=== PATIENT | female | born 1950 | race Caucasian/White ===

== ENCOUNTER → 2017-02-24 | Outpatient (CLI) | payer MEDICARE ==
[2017-02-24 11:06] LABS: Blood Urea Nitrogen 16 mg/dL (7-17); Non-African American GFR(MDRD) >60 (>60 ml/min/1.73 sqM)
--- NOTE | 2017-02-24 12:59 | CT ---
EXAMINATION TYPE: CT urogram wo/w con DATE OF EXAM: 02/24/2017 HISTORY: Intermittent hematuria. CT DLP: 2432mGycm Automated Exposure Control for Dose Reduction was Utilized. CONTRAST: CT scan of the abdomen and pelvis is performed without and with IV Contrast, patient injected with 10 0 mL of Omnipaque 300. 3-D reformats were obtained in separate workstation. COMPARISON: None. FINDINGS: LUNG BASES: A moderate hiatal hernia is appreciated. Minimal subsegmental bibasilar atelectasis is se en dependently. LIVER/GB: No significant abnormality is appreciated. Solitary punctate gallstone is noted. PANCREAS: No significant abnormality is seen. SPLEEN: No significant abnormality is seen. ADRENALS: No significant abnormality is seen. KIDNEYS/BLADDER: Three sub-4mm hypoattenuated right renal lesions are seen that are too small to accu rately characterize. Prominent, Kale is noted on the left. No evidence of nephrolithiasis or hydron ephrosis. Other than the too small to accurately characterize renal hypoattenuating lesions the kidne ys enhance and excrete symmetrically. Few renal sinus cysts are seen on the left in the inferior pole . The ureters are nearly completely opacified. On delayed imaging lateral to the left ureterovesicula r junction there is a filling defect noted dependently within the urinary bladder abutting the compressor repairer ior wall measuring 9.7 x 10.4 x 12.3 cm in transverse by anterior posterior by craniocaudal dimension . BOWEL: No significant abnormality is seen. UTERUS/ADNEXA: No gross abnormality seen. LYMPH NODES: No greater than 1cm abdominal or pelvic lymph nodes are appreciated. OSSEOUS STRUCTURES: No significant abnormality is seen. Mild to moderate degenerative changes are kimberly reciated of the thoracolumbar spine. Indeterminant area of sclerosis is seen along the anterior franco x of the L4 vertebral body. This does not subtle rounded region containing vertical trabecula as seen on series 15 image 26 and series 12 image 87, therefore this may relate to a vertebral body hemangio ma. OTHER: Small fat filled umbilical hernia seen. IMPRESSION: 1. Suspicious 10.4 cm filling defect in the along the posterior urinary bladder all wall lateral to t he left ureterovesicular junction. Direct visualization is recommended with consideration for tissue sampling. 2. Probable L4 vertebral body hemangioma, although slightly atypical characteristics are seen. 3. Right renal lesions that are too small to accurately characterize and left renal sinus cysts. No e vidence of nephrolithiasis or hydronephrosis. 4. Moderate hiatal hernia. 5. Solitary punctate gallstone. A [employer] message has been communicated to Mateo Stafford MD via the [employer] Result system on 02/24/2017 12:56 PM, Message ID [id number].
== END | disposition home or self-care (01) ==
LOC: RADFLMAIN 10:24
PROVIDERS: ATTEND Urology
DX: N28.89 Other specified disorders of kidney and ureter (principal); K80.80 Other cholelithiasis without obstruction; K44.9 Diaphragmatic hernia without obstruction or gangrene
CPT/HCPCS: 82565; 84520; 74178; 36415; 74400; Q9967

== ENCOUNTER → 2017-03-04 | Outpatient (CLI) | payer BC, MEDICARE ==
--- NOTE | 2017-03-04 10:59 | US ---
EXAMINATION TYPE: US duplex aorta DATE OF EXAM: 03/04/2017 COMPARISON: NONE CLINICAL HISTORY: Z13.9 SCREENING FOR DISORDER. Family HX of AAA; controlled HTN EXAM MEASUREMENTS: Abdominal Aorta: Proximal: 2.0cm Transverse Mid: 1.6cm A/P Distal: 1.3cm Transverse Bifurcation: 0.8cm A/P Right STEPHEN; 0.8cm A/P Left STEPHEN Patency of Aorta and Bilateral Common Iliac is demonstrated by color flow and PW Doppler waveform of aorta. IMPRESSION: 1. No abdominal aortic aneurysm.
== END | disposition home or self-care (01) ==
LOC: RADUSWWP 06:57
PROVIDERS: ATTEND Family Medicine
DX: Z13.9 Encounter for screening, unspecified (principal)
CPT/HCPCS: 93979

== ENCOUNTER → 2017-03-04 | Outpatient (CLI) | payer MEDICARE, BC ==
--- NOTE | 2017-03-08 12:08 | BD ---
EXAMINATION TYPE: MG DEXA axial skeleton. DATE OF EXAM: 03/04/2017 COMPARISON: 11.27.2014 CLINICAL HISTORY: Z13.820 SCREEN FOR OSTEOPOROSIS, M85.9 OSTEOPENIA Height: 60.5 Weight: 166 FRAX RISK QUESTIONS: Alcohol (3 or more units per day): NO Family History (Parent hip fracture): YES, WITH FX Glucocorticoids (More than 3mos): NO (Ex: prednisone, prednisolone, methylprednisolone, dexamethasone, and hydrocortisone). History of Fracture in Adulthood: YES Secondary Osteoporosis: NO 1. Type 1 Diabetes: NO 2. Hyperthyroidism: NO 3. Menopause before 45: NO 4. Malnutrition: NO 5. Chronic liver disease: NO Rheumatoid Arthritis: NO Current Tobacco Use: NO RISK FACTORS HISTORY OF: RT HEEL FRACTURE AT 51 YRS OLD Family History of Osteoporosis: YES HER GRANDMOTHER, WITH BROKEN HIP Active: YES Diet low in dairy products/other sources of calcium: NO Postmenopausal woman: AT 52 YRS OLD Hyperparathyroidism: NO Adrenal Insufficiency: NO MEDICATIONS: Thyroid Medications: YES GENERIC SYNTHROID 75 MCG DAILY How Lon YRS Additional Medications: BP MEDS, STATINS FOR CHOLESTEROL, OCCASIONAL REFLUX MEDS, CALCIUM AND VIT D A ND MAGNESIUM Additional History: HYPERTENSION, HIGH CHOLESTEROL, OSTEOARTHRITIS. EXAM MEASUREMENTS: Bone mineral densitometry was performed using the [employer] System. Bone mineral density as measured about the Lumbar spine is: ----- L1-L4(G/cm2): 1.058 T Score Values are as follows: ----- L1: -1.9 ----- L2: -1.4 ----- L3: -1.0 ----- L4: -0.1 ----- L1-L4: -1.0 Bone mineral density has: Increased 5.5% since study of: 11.27.2014 Bone mineral density about the R hip (g/cm2): 0.936 Bone mineral density about the L hip (g/cm2): 0.946 T Score values are as follows: -----R Neck: -0.6 -----L Neck: -0.8 -----R Total: -0.6 -----L Total: -0.5 Bone mineral density has: Decreased -2.7% since study of: 11.27.2014 FRAX%'S: THERE IS A 23.1% CHANCE OF A MAJOR OSTEOPOROTIC FX AND A 0.9% CHANCE OF HIP FX.....PROBA BILITY IN 10 YRS TIME IMPRESSION: Osteopenia (T Score between -2.5 and -1 as noted by T score values There is slightly increased risk of fracture and the patient may be considered for treatment. Re-Screen 2-5 years FOR HER LUMBAR SPINE SCAN. NOTE: T-SCORE=SD OF THE YOUNG ADULT MEAN.
--- NOTE | 2017-03-09 07:09 | MM ---
Reason for exam: screening (asymptomatic). Last mammogram was performed 2 years and 3 months ago. History: Patient is postmenopausal. Family history of breast cancer in cousin. Physical Findings: A clinical breast exam by your physician is recommended on an annual basis and results should be correlated with mammographic findings. MG 3D Screening Mammo W/Cad Bilateral CC and MLO view(s) were taken. Prior study comparison: November 27, 2014, bilateral MG screening mammo w CAD. October 31, 2012, bilateral digital screening mammo w/CAD. The breast tissue is heterogeneously dense. This may lower the sensitivity of mammography. No significant changes when compared with prior studies. ASSESSMENT: Benign, BI-RAD 2 RECOMMENDATION: Routine screening mammogram of both breasts in 1 year.
== END | disposition home or self-care (01) ==
LOC: RADMAMWWP 07:03
PROVIDERS: ATTEND Obstetrics & Gynecology
DX: Z12.31 Encounter for screening mammogram for malignant neoplasm of breast (principal); M85.80 Other specified disorders of bone density and structure, unspecified site; Z80.3 Family history of malignant neoplasm of breast; Z13.820 Encounter for screening for osteoporosis
CPT/HCPCS: 77080; 77063; G0202

== ENCOUNTER → 2018-03-13 | Outpatient (CLI) | payer MEDICARE ==
--- NOTE | 2018-03-15 09:51 | MM ---
Reason for exam: screening (asymptomatic). Last mammogram was performed 1 year ago. History: Patient is postmenopausal. Family history of breast cancer in cousin. Physical Findings: A clinical breast exam by your physician is recommended on an annual basis and results should be correlated with mammographic findings. MG 3D Screening Mammo W/Cad Bilateral CC and MLO view(s) were taken. Prior study comparison: March 04, 2017, bilateral MG 3d screening mammo w/cad. November 27, 2014, bilateral MG screening mammo w CAD. The breast tissue is heterogeneously dense. This may lower the sensitivity of mammography. There is no discrete abnormality. Two upper skin lesions left breast redemonstrated. ASSESSMENT: Benign, BI-RAD 2 RECOMMENDATION: Routine screening mammogram of both breasts in 1 year.
== END | disposition home or self-care (01) ==
LOC: RADMAMWWP 08:47
PROVIDERS: ATTEND Obstetrics & Gynecology
DX: Z12.31 Encounter for screening mammogram for malignant neoplasm of breast (principal)
CPT/HCPCS: 77063; 77067

== ENCOUNTER → 2019-03-20 | Outpatient (CLI) | payer MEDICARE ==
--- NOTE | 2019-03-20 10:05 | BD ---
EXAMINATION TYPE: Axial Bone Density DATE OF EXAM: 03/20/2019 COMPARISON: 03.04.2017 DEXA bone scan. CLINICAL HISTORY: 68 YR OLD FEMALE......ICD-10 CODE: Z78.0 POST KETTY W/O HRT Height: 61 Weight: 157 FRAX RISK QUESTIONS: Family History (Parent hip fracture): YES RISK FACTORS HISTORY OF: HX OF BROKEN HEEL 15 YRS AGO...PT IN HER 50's Family History of Osteoporosis: YES, GRANDMOTHER WITH HIP FX, Postmenopausal woman: YES AT 52 YRS OLD Hyperparathyroidism: NO Adrenal Insufficiency: NO MEDICATIONS: Thyroid Medications: YES, SYNTHROID FOR OVER 5 YRS Additional Medications: BP MEDS, STATIN FOR CHOLESTEROL, REFLUX MEDS, CALCIUM, VIT D, MAGNESIUM Additional History: OSTEOARTHRITIS, HYPERTENSION, CHOLESTEROL EXAM MEASUREMENTS: Bone mineral densitometry was performed using the [employer] System. Bone mineral density as measured about the Lumbar spine is: ----- L1-L4(G/cm2): 1.079 T Score Values are as follows: ----- L1: -2.0 ----- L2: -2.0 ----- L3: -0.9 ----- L4: 0.8 ----- L1-L4: -0.8 Bone mineral density has: Increased 2.0% since study of: 03.04.2017 Bone mineral density about the R hip (g/cm2): 0.929 Bone mineral density about the L hip (g/cm2): 0.936 T Score values are as follows: -----R Neck: -0.4 -----L Neck: -1.0 -----R Total: -0.6 -----L Total: -0.6 Bone mineral density has: Decreased -1.0% since study of: 03.04.2017 FRAX:s% THERE IS A 22.7% CHANCE FOR A MAJOR OSTEOPOROTIC FX AND A 1.7% FOR HIP.....PROBABILITY FOR FX IN 10 YRS TIME IMPRESSION: Osteopenia remains present at 2 consecutive levels in the low back (T Score between -2.5 and -1). There remains slightly increased risk of fracture and the patient may be considered for treatment. Re-Screen 2-5 years. NOTE: T-SCORE=SD OF THE YOUNG ADULT MEAN.
--- NOTE | 2019-03-21 08:10 | MM ---
Reason for exam: screening (asymptomatic). Last mammogram was performed 1 year ago. History: Patient is postmenopausal. Family history of breast cancer in cousin. Physical Findings: A clinical breast exam by your physician is recommended on an annual basis and results should be correlated with mammographic findings. MG 3D Screening Mammo W/Cad Bilateral CC and MLO view(s) were taken. Prior study comparison: March 13, 2018, bilateral MG 3d screening mammo w/cad. March 04, 2017, bilateral MG 3d screening mammo w/cad. The breast tissue is heterogeneously dense. This may lower the sensitivity of mammography. There is no discrete abnormality. ASSESSMENT: Negative, BI-RAD 1 RECOMMENDATION: Routine screening mammogram of both breasts in 1 year.
== END | disposition home or self-care (01) ==
LOC: RADMAMWWP 08:07
PROVIDERS: ATTEND Obstetrics & Gynecology
DX: Z12.31 Encounter for screening mammogram for malignant neoplasm of breast (principal); M85.88 Other specified disorders of bone density and structure, other site; Z80.3 Family history of malignant neoplasm of breast; Z78.0 Asymptomatic menopausal state
CPT/HCPCS: 77063; 77067; 77080

== ENCOUNTER 2019-06-10 23:20 | Emergency (ER) | payer MEDICARE ==
[2019-06-10 23:27] VITALS: RESP 18; TEMP 98.1
[2019-06-10] MEDS ORDERED: NITROGLYCERIN OINT 1 INCH/GM PACKET TOPICAL STA (23:39)
[2019-06-10] MEDS ORDERED: ASPIRIN 81 MG PO STA (23:39)
--- NOTE | 2019-06-10 23:42 | ED ---
General Adult HPI - General Source: patient, family, RN notes reviewed, old records reviewed Mode of arrival: ambulatory Limitations: no limitations <Ron Reece - Last Filed: 06/11/19 00:49> <Whit Conte - Last Filed: 06/11/19 01:10> - General Chief complaint: Chest Pain Stated complaint: HTN Time Seen by Provider: 06/10/19 23:29 - History of Present Illness Initial comments: This is a 68-year-old female who presents emergency Department with a past medical history significant for hypertension high cholesterol. Patient states he does not have diabetes and she has never smoked. Patient states she had a cardiac catheterization in 2012 Hospital completely normal. Patient comes in tonight because she had a sensation she normally does not have and that was that there was discomfort which made realized that she had a brown out. Patient states that lasted for about an hour and then it subsided. Patient states this was not normal. Patient states it is very subtle. Patient denies any radiation of that discomfort patient denies any shortness of breath or difficulty breathing. Patient denies any diaphoretic episodes. Patient denies any nausea. Patient states currently she is having no symptoms whatsoever. Patient denies any abdominal pain. Patient denies any recent fever chills or cough. Patient denies any lightheadedness or dizziness. Patient denies any headache patient denies any numbness or weakness. Patient denies any swelling to the legs or calf tenderness. (Ron Reece) - Related Data Allergies Allergy/AdvReac Type Severity Reaction Status Date / Time No Known Allergies Allergy Verified 06/10/19 23:27 Review of Systems ROS Other: All systems not noted in ROS Statement are negative. <Ron Reece - Last Filed: 06/11/19 00:49> ROS Other: All systems not noted in ROS Statement are negative. <Whit Conte - Last Filed: 06/11/19 01:10> ROS Statement: Those systems with pertinent positive or pertinent negative responses have been documented in the HPI. Past Medical History Past Medical History: Hypertension History of Any Multi-Drug Resistant Organisms: None Reported Past Surgical History: Bladder Surgery Past Psychological History: No Psychological Hx Reported Smoking Status: Never smoker Past Alcohol Use History: None Reported Past Drug Use History: None Reported <Ron Reece - Last Filed: 06/11/19 00:49> General Exam Limitations: no limitations <Ron Reece - Last Filed: 06/11/19 00:49> - General Exam Comments Initial Comments: GENERAL: Patient is well-developed and well-nourished. Patient is nontoxic and well-hy drated and is in no acute distress. ENT: Neck is soft and supple. No significant lymphadenopathy is noted. Oropharynx is clear. Moist mucous membranes. Neck has full range of motion without elici ting any pain. EYES: The sclera were anicteric and conjunctiva were pink and moist. Extraocular m ovements were intact and pupils were equal round and reactive to light. Eyelids were unremarkable. PULMONARY: Unlabored respirations. Good breath sounds bilaterally. No audible rales rhonchi or wheezing was noted. CARDIOVASCULAR: There is a regular rate and rhythm without any murmurs gallops or rubs. ABDOMEN: Soft and nontender with normal bowel sounds. SKIN: Skin is clear with no lesions or rashes and otherwise unremarkable. NEUROLOGIC: Patient is alert and oriented x3. Cranial nerves II through XII are grossly intact. Motor and sensory are also intact. Normal speech, volume and content. Symmetrical smile. MUSCULOSKELETAL: Normal extremities with adequate strength and full range of motion. No lower extremity swelling or edema. No calf tenderness. LYMPHATICS: No significant lymphadenopathy is noted PSYCHIATRIC: Normal psychiatric evaluation. (Ron Reece) Course Vital Signs 06/10/19 06/10/19 06/11/19 23:22 23:55 00:24 Temperature 98.1 F Pulse Rate 84 80 73 Respiratory 18 18 18 Rate Blood Pressure 200/82 176/95 140/68 O2 Sat by Pulse 98 98 98 Oximetry Medical Decision Making - Lab Data Result diagrams: 06/10/19 23:33 06/10/19 23:33 <Ron Reece - Last Filed: 06/11/19 00:49> - Lab Data Result diagrams: 06/10/19 23:33 06/10/19 23:33 <Whit Conte - Last Filed: 06/11/19 01:10> - Medical Decision Making EKG shows normal sinus rhythm at 83 bpm [place] interval 262 QRS is 70 QT interval 382 QTC is 448. EKG shows no ST segment elevation or depression Chest x-ray shows no acute abnormality. Patient is in no distress currently while in the emergency department. (Ron Reece) Margret was seen and evaluated by Dr Reece, prior to end of shift he discussed with her options for discharge home with close out patient follow up vs observation here, initially patient had requested to stay. Shortly after [place] orders were placed the patient came to the nursing station and advised that she had decided she would prefer discharge home and sleep in her own bed and follow up with her primary care Dr. Schwartz and her operational communication chief Dr. Edgar. She will call them boast first thing in the morning. Patient has been a symptomatically since arrival in the emergency department. Her workup here was negative. Her hypertension has resolved. Very close return parameters were discussed with the patient, the importance of close outpatient follow-up was discussed. Patient has been sick they will be compliant with these plans. All questions pertaining care were answered Tanisha patient was discharged home in stable condition. (Whit Conte) - Lab Data Lab Results 06/10/19 06/10/19 06/10/19 Range/Units 23:33 23:33 23:33 WBC 8.6 (3.8-10.6) k/uL RBC 4.32 (3.80-5.40) m/uL Hgb 13.5 (11.4-16.0) gm/dL Hct 40.7 (34.0-46.0) % MCV 94.2 (80.0-100.0) fL MCH 31.3 (25.0-35.0) pg MCHC 33.3 (31.0-37.0) g/dL RDW 12.0 (11.5-15.5) % Plt Count 213 (150-450) k/uL Neutrophils % 58 % Lymphocytes % 31 % Monocytes % 6 % Eosinophils % 2 % Basophils % 0 % Neutrophils # 5.0 (1.3-7.7) k/uL Lymphocytes # 2.7 (1.0-4.8) k/uL Monocytes # 0.5 (0-1.0) k/uL Eosinophils # 0.2 (0-0.7) k/uL Basophils # 0.0 (0-0.2) k/uL PT 10.1 (9.0-12.0) sec INR 0.9 (<1.2) APTT 21.6 L (22.0-30.0) sec Sodium 142 (137-145) mmol/L Potassium 4.0 (3.5-5.1) mmol/L Chloride 107 (98-107) mmol/L Carbon Dioxide 27 (22-30) mmol/L Anion Gap 8 mmol/L BUN 21 H (7-17) mg/dL Creatinine 1.03 (0.52-1.04) mg/dL Est GFR (CKD-EPI)AfAm 65 (>60 ml/min/1.73 sqM) Est GFR (CKD-EPI)NonAf 56 (>60 ml/min/1.73 sqM) Glucose 109 H (74-99) mg/dL Calcium 10.1 (8.4-10.2) mg/dL Magnesium 2.0 (1.6-2.3) mg/dL Total Bilirubin 0.5 (0.2-1.3) mg/dL AST 28 (14-36) U/L ALT 34 (9-52) U/L Alkaline Phosphatase 93 (38-126) U/L Troponin I (0.000-0.034) ng/mL Total Protein 7.2 (6.3-8.2) g/dL Albumin 4.4 (3.5-5.0) g/dL 06/10/19 Range/Units 23:33 WBC (3.8-10.6) k/uL RBC (3.80-5.40) m/uL Hgb (11.4-16.0) gm/dL Hct (34.0-46.0) % MCV (80.0-100.0) fL MCH (25.0-35.0) pg MCHC (31.0-37.0) g/dL RDW (11.5-15.5) % Plt Count (150-450) k/uL Neutrophils % % Lymphocytes % % Monocytes % % Eosinophils % % Basophils % % Neutrophils # (1.3-7.7) k/uL Lymphocytes # (1.0-4.8) k/uL Monocytes # (0-1.0) k/uL Eosinophils # (0-0.7) k/uL Basophils # (0-0.2) k/uL PT (9.0-12.0) sec INR (<1.2) APTT (22.0-30.0) sec Sodium (137-145) mmol/L Potassium (3.5-5.1) mmol/L Chloride (98-107) mmol/L Carbon Dioxide (22-30) mmol/L Anion Gap mmol/L BUN (7-17) mg/dL Creatinine (0.52-1.04) mg/dL Est GFR (CKD-EPI)AfAm (>60 ml/min/1.73 sqM) Est GFR (CKD-EPI)NonAf (>60 ml/min/1.73 sqM) Glucose (74-99) mg/dL Calcium (8.4-10.2) mg/dL Magnesium (1.6-2.3) mg/dL Total Bilirubin (0.2-1.3) mg/dL AST (14-36) U/L ALT (9-52) U/L Alkaline Phosphatase (38-126) U/L Troponin I <0.012 (0.000-0.034) ng/mL Total Protein (6.3-8.2) g/dL Albumin (3.5-5.0) g/dL Disposition Time of Disposition: 00:51 <Ron Reece - Last Filed: 06/11/19 00:49> Is patient prescribed a controlled substance at d/c from ED?: No <Whit Conte - Last Filed: 06/11/19 01:10> Clinical Impression: Chest pain, HTN (hypertension) Disposition: HOME SELF-CARE Condition: Stable Instructions (If sedation given, give patient instructions): Chest Pain (ED) Referrals: Osman Schwartz MD [Primary Care Provider] - 1-2 days
--- NOTE | 2019-06-10 23:58 | XR ---
EXAMINATION TYPE: XR chest 2V DATE OF EXAM: 06/10/2019 COMPARISON: 05/01/2013 HISTORY: Chest pain TECHNIQUE: Frontal and lateral views of the chest are obtained. FINDINGS: Heart and mediastinum are normal. Lungs are clear. Costophrenic angles are clear. There is hiatal hernia. Bony thorax is intact. There are chest leads. IMPRESSION: Small hiatal hernia. No active cardiopulmonary disease. No change.
[2019-06-11] MEDS ORDERED: LABETALOL 5 MG/ML VIAL MDV IVP STA (00:02)
[2019-06-11 00:05] LABS: Albumin 4.4 g/dL (3.5-5.0); Calcium 10.1 mg/dL (8.4-10.2); Total Bilirubin 0.5 mg/dL (0.2-1.3); Total Protein 7.2 g/dL (6.3-8.2)
[2019-06-11 00:10] LABS: Basophils % (A) 0 %; Eosinophils # (A) 0.2 k/uL (0-0.7); Eosinophils % (A) 2 %; HCT 40.7 % (34.0-46.0); HGB 13.5 gm/dL (11.4-16.0); Lymphocytes # (A) 2.7 k/uL (1.0-4.8); Lymphocytes % (A) 31 %; MCH 31.3 pg (25.0-35.0); MCHC 33.3 g/dL (31.0-37.0); MCV 94.2 fL (80.0-100.0); Mean Platelet Volume 8.5; Monocytes # (A) 0.5 k/uL (0-1.0); Monocytes % (A) 6 %; Neutrophils % (A) 58 %; Platelet Count 213 k/uL (150-450); RBC 4.32 m/uL (3.80-5.40); WBC 8.6 k/uL (3.8-10.6)
[2019-06-11 00:21] LABS: INR 0.9 (<1.2); Prothrombin Time 10.1 sec (9.0-12.0)
[2019-06-11 00:31] LABS: Partial Thromboplastin Time 21.6 sec (22.0-30.0)
[2019-06-11] MEDS ORDERED: NITROGLYCERIN SL TABS 0.4 MG TAB SUBLINGUAL PRN (00:51)
[2019-06-11 01:26] VITALS: BP 134/66; PULSE 74
[2019-06-12] MEDS ORDERED: ASPIRIN 325 MG TAB PO SCH (09:00)
== END 2019-06-11 01:26 | disposition home or self-care (01) ==
LOC: EC 23:20
DX: R07.9 Chest pain, unspecified (principal); I10 Essential (primary) hypertension
CPT/HCPCS: 36415; 71046; 80053; 83735; 84484; 85025; 85610; 85730; 93005; 99285

== ENCOUNTER 2019-07-19 08:40 | Day surgery (SDC) | payer MEDICARE ==
[2019-07-17 14:25] VITALS: BMI 29.2
--- NOTE | 2019-07-19 07:55 | P.GSHP ---
History of Present Illness H&P Date: 07/19/19 CHIEF COMPLAINT: Colon screen HISTORY OF PRESENT ILLNESS: The patient is a 69-year-old female who presents for colon screen. Lower endoscopy was offered for further evaluation and management. PAST MEDICAL HISTORY: Please see list. PAST SURGICAL HISTORY: Please see list. MEDICATIONS: Please see list. ALLERGIES: Please see list. SOCIAL HISTORY: No illicit drug use FAMILY HISTORY: No reports of Crohn disease or ulcerative colitis. REVIEW OF ORGAN SYSTEMS: CONSTITUTIONAL: No reports of fevers or chills. PHYSICAL EXAM: VITAL SIGNS: Stable GENERAL: Well-developed pleasant in no acute distress. HEENT: No scleral icterus. Extraocular movements grossly intact. Moist buccal mucosa. NECK: Supple without lymphadenopathy. CHEST: Unlabored respirations. Equal bilateral excursions. CARDIOVASCULAR: Regular rate and rhythm. Distal 2+ pulses. ABDOMEN: Soft, nontender, nondistended. MUSCULOSKELETAL: No clubbing, cyanosis, or edema. ASSESSMENT: 1. Colon screen. PLAN: 1. Recommend proceeding with a lower endoscopy Past Medical History Past Medical History: Cancer, Hypertension, Osteoarthritis (OA) Additional Past Medical History / Comment(s): MIGRAINES, HX OF PALPITATIONS WITH EARLY MENOPAUSE-2011 EPISODE OF SENSATION RADIATING UP NECK AND ACROSS SHOULDERS & BP WAS ELEVATED WITH ELEVATED TROPONINS, AND JUN 2019 BP SPIKED- TIGHTNESS IN CHEST SEEN IN ER., SEASONAL ALLERGIES, 2017 BLADDER CANCER WITH SURGERY., [place]. History of Any Multi-Drug Resistant Organisms: None Reported Past Surgical History: Bladder Surgery, Heart Catheterization Additional Past Surgical History / Comment(s): CYSTOSCOPYS, GROWTH IN BLADDER REMOVED. Past Anesthesia/Blood Transfusion Reactions: No Reported Reaction Past Psychological History: No Psychological Hx Reported Smoking Status: Never smoker Past Alcohol Use History: Rare Past Drug Use History: None Reported - Past Family History Mother Family Medical History: Cancer Additional Family Medical History / Comment(s): COLON CANCER Brother(s) Family Medical History: Cancer Additional Family Medical History / Comment(s): COLON CANCER Medications and Allergies Home Medications Medication Instructions Recorded Confirmed Type Aspirin [Adult Low Dose Aspirin EC] 81 mg PO DAILY 07/17/19 07/17/19 History Atenolol [Tenormin] 25 mg PO DAILY 07/17/19 07/17/19 History Atorvastatin [Lipitor] 40 mg PO HS 07/17/19 07/17/19 History Calcium With Vit D & K 2 tab PO DAILY 07/17/19 History Cholecalciferol [Vitamin D3 (25 1,000 unit PO DAILY 07/17/19 07/17/19 History Mcg = 1000 Iu)] Fexofenadine HCl [Jasmin Allergy] 180 mg PO DAILY 07/17/19 07/17/19 History Fluticasone Nasal [place] [Flonase 2 spr EA NOSTRIL DAILY 07/17/19 07/17/19 History Nasal Brandon] Hydrochlorothiazide 12.5 mg PO DAILY 07/17/19 07/17/19 History Levothyroxine Sodium [Synthroid] 75 mcg PO DAILY 07/17/19 07/17/19 History Magnesium Citrate 250 mg PO DAILY 07/17/19 07/17/19 History Terbinafine HCl [LamISIL] 250 mg PO DAILY 07/17/19 07/17/19 History Ubidecarenone [Co Q-10] 100 mg PO DAILY 07/17/19 07/17/19 History amLODIPine BESYLATE [Norvasc] 5 mg PO HS 07/17/19 07/17/19 History Allergies Allergy/AdvReac Type Severity Reaction Status Date / Time No Known Allergies Allergy Verified 07/17/19 13:59
[~2019-07-19 08:40] MED LIST: LACTATED RINGERS 1,000 ML IV SCH
[2019-07-19] MEDS ORDERED: LIDOCAINE 1% (10MG/ML) FOR IV START INTRADERMA ONE (09:22)
[2019-07-19 09:24] VITALS: TEMP 97.3
[2019-07-19] MEDS ORDERED: LIDOCAINE 1% INJ 10MG/ML (20 ML MDV) ONE (09:49)
[2019-07-19] MEDS ORDERED: PROPOFOL 10 MG/ML 20 ML VIAL IV ONE (09:49)
--- NOTE | 2019-07-19 10:18 | P.PCN ---
Date of Procedure: 07/19/19 Description of Procedure: PREOPERATIVE DIAGNOSIS: Personal history of colon polyps Family history colon cancer mother, brother Colonoscopy screening, high risk POSTOPERATIVE DIAGNOSIS: Personal history of colon polyps Family history colon cancer mother, brother Colonoscopy screening, high risk Diverticulosis, scattered. OPERATION: Colonoscopy to the ileocecal valve and appendiceal orifice. SURGEON: Lizet Beach MD. ANESTHESIA: MAC. INDICATIONS: The patient is a 69-year-old female who presents for colonoscopy screening. last colonoscopy 6 years ago. Benefits and risks were described and informed consent was obtained. DESCRIPTION OF PROCEDURE: The patient had undergone Suprep. She had been brought into the operating room and laid in the left lateral decubitus position. After adequate intravenous sedation, the rectum was examined with 2% lidocaine jelly. External hemorrhoids were encountered. The rectal tone was within normal limits. No lesions were palpated in the rectal vault. An Olympus colonoscope was advanced until the ileocecal valve and appendiceal orifice were clearly viewed. The prep was excellent with clear visualization of the mucosal folds. Abdominal wall pressures used to advance the scope. The scope was removed with visualization of each mucosal fold. Scattered diverticulosis was encountered. No colonic polyps were found. No evidence of focal colitis was found. Retroflexion of the scope demonstrated grade 1 internal hemorrhoids without active bleeding or inflammation. The colon was desufflated. The patient had tolerated the procedure well. Withdrawal time was over 6 minutes. FINDINGS: Aronchick preparation quality scale 1 (1-5) Internal hemorrhoids, grade 1 No external prolapsed hemorrhoids. No arteriovenous malformations. No adenomatous polyps. No focal colitis. RECOMMENDATIONS: She is high risk, repeat colonoscopy in 5 years, 2024 or Cologaurd Plan - Discharge Summary New Discharge Prescriptions: No Action Levothyroxine Sodium [Synthroid] 75 mcg PO DAILY Atenolol [Tenormin] 25 mg PO DAILY Aspirin [Adult Low Dose Aspirin EC] 81 mg PO DAILY Terbinafine HCl [LamISIL] 250 mg PO DAILY Hydrochlorothiazide 12.5 mg PO DAILY Atorvastatin [Lipitor] 40 mg PO HS amLODIPine BESYLATE [Norvasc] 5 mg PO HS Cholecalciferol [Vitamin D3 (25 Mcg = 1000 Iu)] 1,000 unit PO DAILY Fluticasone Nasal [place] [Flonase Nasal [place]] 2 spr EA NOSTRIL DAILY Fexofenadine HCl [Jasmin Allergy] 180 mg PO DAILY Ubidecarenone [Co Q-10] 100 mg PO DAILY Magnesium Citrate 250 mg PO DAILY Calcium With Vit D & K 2 tab PO DAILY Discharge Medication List Aspirin [Adult Low Dose Aspirin EC] 81 mg PO DAILY 07/17/19 [History] Atenolol [Tenormin] 25 mg PO DAILY 07/17/19 [History] Atorvastatin [Lipitor] 40 mg PO HS 07/17/19 [History] Calcium With Vit D & K 2 tab PO DAILY 07/17/19 [History] Cholecalciferol [Vitamin D3 (25 Mcg = 1000 Iu)] 1,000 unit PO DAILY 07/17/19 [History] Fexofenadine HCl [Jasmin Allergy] 180 mg PO DAILY 07/17/19 [History] Fluticasone Nasal [place] [Flonase Nasal [place]] 2 spr EA NOSTRIL DAILY 07/17/19 [History] Hydrochlorothiazide 12.5 mg PO DAILY 07/17/19 [History] Levothyroxine Sodium [Synthroid] 75 mcg PO DAILY 07/17/19 [History] Magnesium Citrate 250 mg PO DAILY 07/17/19 [History] Terbinafine HCl [LamISIL] 250 mg PO DAILY 07/17/19 [History] Ubidecarenone [Co Q-10] 100 mg PO DAILY 07/17/19 [History] amLODIPine BESYLATE [Norvasc] 5 mg PO HS 07/17/19 [History] Follow up Appointment(s)/Referral(s): Lizet Beach MD [STAFF PHYSICIAN] - As Needed Patient Instructions/Handouts: Diverticulosis Diet (GEN), Diverticulosis (GEN) Activity/Diet/Wound Care/Special Instructions: Repeat colonoscopy 5 years, 2024 or Cologaurd Discharge Disposition: HOME SELF-CARE
[2019-07-19 10:43] VITALS: BP 104/62; PULSE 66; RESP 20
== END 2019-07-19 10:56 | disposition home or self-care (01) ==
LOC: ORWHC2ENDO 08:40
PROVIDERS: ATTEND Surgery Plastic and Reconstructive Surgery
DX: Z12.11 Encounter for screening for malignant neoplasm of colon (principal); K57.30 Diverticulosis of large intestine without perforation or abscess without bleeding; K64.0 First degree hemorrhoids; K64.4 Residual hemorrhoidal skin tags; Z86.010 Personal history of colon polyps; Z80.0 Family history of malignant neoplasm of digestive organs; I10 Essential (primary) hypertension; E78.5 Hyperlipidemia, unspecified; G43.909 Migraine, unspecified, not intractable, without status migrainosus; E07.9 Disorder of thyroid, unspecified; J30.2 Other seasonal allergic rhinitis; M19.90 Unspecified osteoarthritis, unspecified site; Z98.890 Other specified postprocedural states; Z85.51 Personal history of malignant neoplasm of bladder; Z79.890 Hormone replacement therapy; Z79.82 Long term (current) use of aspirin; Z79.899 Other long term (current) drug therapy
CPT/HCPCS: J2001; J2704; G0105; 45378

== ENCOUNTER → 2019-12-10 | Outpatient (CLI) | payer MEDICARE ==
--- NOTE | 2019-12-10 10:46 | US ---
EXAMINATION TYPE: US venous doppler duplex LE LT DATE OF EXAM: 12/10/2019 10:40 AM COMPARISON: NONE CLINICAL HISTORY: L80.9 Phelbitis Left leg. Intermittent ankle swelling that comes and goes. Aspirin . No redness or pain. SIDE PERFORMED: Left TECHNIQUE: The lower extremity deep venous system is examined utilizing real time linear array sonog karli with graded compression, doppler sonography and color-flow sonography. VESSELS IMAGED: External Iliac Vein (EIV) Common Femoral Vein Deep Femoral Vein Greater Saphenous Vein * Femoral Vein Popliteal Vein Small Saphenous Vein * Proximal Calf Veins (* superficial vessels) Grayscale, color doppler, spectral doppler imaging performed of the deep veins of the left lower extr emity. There is normal flow, compressibility, vascular waveforms. Left Leg: Negative for DVT IMPRESSION: No sonographic evidence of deep venous thrombosis within the visualized left lower extre mity.
== END | disposition home or self-care (01) ==
LOC: RADUSWWP 10:22
PROVIDERS: ATTEND Orthopaedic Surgery
DX: M19.072 Primary osteoarthritis, left ankle and foot (principal); M17.12 Unilateral primary osteoarthritis, left knee; E78.5 Hyperlipidemia, unspecified; E03.9 Hypothyroidism, unspecified; I11.9 Hypertensive heart disease without heart failure; Z85.51 Personal history of malignant neoplasm of bladder; M79.89 Other specified soft tissue disorders

== ENCOUNTER → 2020-05-14 | Outpatient (CLI) | payer MEDICARE ==
--- NOTE | 2020-05-15 10:49 | MM ---
Reason for exam: screening (asymptomatic). Last mammogram was performed 1 year and 2 months ago. History: Patient is postmenopausal and history of other cancer. Family history of breast cancer in paternal cousin. Physical Findings: A clinical breast exam by your physician is recommended on an annual basis and results should be correlated with mammographic findings. MG 3D Screening Mammo W/Cad Bilateral CC and MLO view(s) were taken. Prior study comparison: March 20, 2019, bilateral MG 3d screening mammo w/cad. March 13, 2018, bilateral MG 3d screening mammo w/cad. The breast tissue is heterogeneously dense. This may lower the sensitivity of mammography. There is no discrete abnormality. ASSESSMENT: Negative, BI-RAD 1 RECOMMENDATION: Routine screening mammogram of both breasts in 1 year.
== END | disposition home or self-care (01) ==
LOC: RADMAMWWP 16:14
PROVIDERS: ATTEND Family Medicine
DX: Z12.31 Encounter for screening mammogram for malignant neoplasm of breast (principal)
CPT/HCPCS: 77063; 77067

== ENCOUNTER → 2020-05-15 | Outpatient (CLI) | payer MEDICARE ==
[2020-05-15 11:48] LABS: Basophils % (A) 0 %; Eosinophils # (A) 0.1 k/uL (0-0.7); Eosinophils % (A) 1 %; HCT 45.3 % (34.0-46.0); HGB 14.5 gm/dL (11.4-16.0); Lymphocytes # (A) 1.7 k/uL (1.0-4.8); Lymphocytes % (A) 28 %; MCHC 32.1 g/dL (31.0-37.0); MCV 93.5 fL (80.0-100.0); Mean Platelet Volume 8.3; Monocytes # (A) 0.3 k/uL (0-1.0); Monocytes % (A) 5 %; Neutrophils # (A) 3.9 k/uL (1.3-7.7); Neutrophils % (A) 64 %; Platelet Count 224 k/uL (150-450); RBC 4.85 m/uL (3.80-5.40); RDW 12.3 % (11.5-15.5)
[2020-05-15 14:44] LABS: Albumin 4.7 g/dL (3.80-4.90); Albumin/Globulin Ratio 2.04 (1.60-3.17); Anion Gap 10.5 mmol/L (4.00-12.00); Carbon Dioxide 24.5 mmol/L (21.6-31.8); Chol/HDL Ratio 2.47; Globulin 2.3 g/dL (1.6-3.3); LDL Cholesterol,Calculated 68.4 mg/dL (0.0-131.0); Non-African American GFR(CKD) 57.8 (60.0-200.0); Potassium 4.1 mmol/L (3.5-5.5); Total Bilirubin 0.7 mg/dL (0.3-1.2); VLDL Calculation 15.6 mg/dL (5.00-40.00)
[2020-05-15 14:54] LABS: T4, Free (Free Thyroxine) 1.5 ng/dL (0.80-1.80)
== END | disposition home or self-care (01) ==
LOC: LABWHC1 10:05
PROVIDERS: ATTEND Family Medicine
DX: E03.9 Hypothyroidism, unspecified (principal); E78.5 Hyperlipidemia, unspecified
CPT/HCPCS: 36415; 80053; 80061; 84439; 84443; 84481; 85025

== ENCOUNTER → 2021-05-15 | Outpatient (CLI) | payer MEDICARE ==
--- NOTE | 2021-05-18 10:58 | MM ---
Reason for exam: screening (asymptomatic). Last mammogram was performed 1 year ago. History: Patient is postmenopausal and history of other cancer. Family history of breast cancer in paternal cousin at age 40. Physical Findings: A clinical breast exam by your physician is recommended on an annual basis and results should be correlated with mammographic findings. MG 3D Screening Mammo W/Cad Bilateral CC and MLO view(s) were taken. Prior study comparison: May 14, 2020, bilateral MG 3d screening mammo w/cad. March 20, 2019, bilateral MG 3d screening mammo w/cad. No significant changes when compared with prior studies. ASSESSMENT: Benign, BI-RAD 2 RECOMMENDATION: Routine screening mammogram of both breasts in 1 year.
== END | disposition home or self-care (01) ==
LOC: RADMAMWWP 10:09
PROVIDERS: ATTEND Obstetrics & Gynecology
DX: Z12.31 Encounter for screening mammogram for malignant neoplasm of breast (principal); Z80.3 Family history of malignant neoplasm of breast; Z78.0 Asymptomatic menopausal state
CPT/HCPCS: 77063; 77067

== ENCOUNTER → 2021-05-19 | Outpatient (CLI) | payer MEDICARE ==
--- NOTE | 2021-05-19 09:35 | US ---
EXAMINATION TYPE: US pelvis complete transvag DATE OF EXAM: 05/19/2021 COMPARISON: CT urogram 2017 CLINICAL HISTORY: R10.2 PELVIC PAIN. Pt states intermittent pelvic pain TECHNIQUE: Transvaginal (TV) and Transabdominal (TA) . Transabdominal sonographic images of the pel vis were acquired. Transvaginal sonographic images were medically necessary to better assess the fol lowing anatomy: Entire pelvis Date of LMP: Age 52 EXAM MEASUREMENTS: Uterus: 6.5 x 3.1 x 3.4 cm Endometrial Stripe: 0.2 cm Right Ovary: 2.3 x 1.1 x 1.3 cm 1. Uterus: Retroverted Heterogeneous with possible fibroid ml/left= 0.8 x 0.7 x 1.1 cm 2. Endometrium: wnl 3. Right Ovary: Small cyst= 1.1 x 0.9 x 0.9 cm 4. Left Ovary: Obscured by overlying bowel gas 5. Bilateral Adnexa: wnl 6. Posterior cul-de-sac: wnl Retroverted uterus redemonstrated. There is 8mm hypoechoic intramural fibroid suspected in the left a spect of the uterus on transvaginal ultrasound. There is no free fluid. Some tiny cystic change without abnormal thickening along the endometrium presumed subendometrial in location could reflect product of adenomyosis. Right ovary is seen with incidental 1.1 cm thin-walled cyst. Left ovary not visualized. No suspicious adnexal masses seen. IMPRESSION: Possible 8 mm left-sided intramural fibroid. Possible uterine adenomyosis with tiny cysti c change along the endometrium.
== END | disposition home or self-care (01) ==
LOC: RADUSWWP 08:20
PROVIDERS: ATTEND Obstetrics & Gynecology
DX: R10.2 Pelvic and perineal pain (principal)
CPT/HCPCS: 76830; 76856

== ENCOUNTER → 2021-06-16 | Outpatient (CLI) | payer MEDICARE ==
--- NOTE | 2021-06-16 19:26 | BD ---
EXAMINATION TYPE: Axial Bone Density DATE OF EXAM: 06/16/2021 COMPARISON:2019 CLINICAL HISTORY: 70-year-old female disorder of bone Height: 5'1 Weight: 169 FRAX RISK QUESTIONS: History of Fracture in Adulthood: y Secondary Osteoporosis: RISK FACTORS HISTORY OF: Postmenopausal woman: y MEDICATIONS: Thyroid Medications: Which medication: Levothyroxine How Lon years Additional Medications: cholesterol, blood pressure Additional History: bladder cancer 2017 EXAM MEASUREMENTS: Bone mineral densitometry was performed using the [employer] System. Bone mineral density as measured about the Lumbar spine is: ----- L1-L4(G/cm2): 1.109 T Score Values are as follows: ----- L2: -1.8 ----- L3: -0.7 ----- L4: 0.9 artifactually increased due to degenerative sclerosis. ----- L1-L4:-0.6 ----- L2-L3: -1.3 Bone mineral density has: Increased 1.7% since study of: 03/20/2019 Bone mineral density about the R hip (g/cm2): 0.951 Bone mineral density about the L hip (g/cm2): 0.915 T Score values are as follows: -----R Neck: -0.6 -----L Neck: -0.9 -----R Total: -0.5 -----L Total: -0.4 Bone mineral density has: Increased 1.7% since study of: 03/20/2019 IMPRESSION: Osteopenia (T Score between -2.5 and -1) as indicated by T score values averaged between L1-L3. L4 is excluded because of an artifactually increased bone density as a consequence of degenerative scleros is). There is slightly increased risk of fracture and the patient may be considered for treatment. Re-Screen 2-5 years. NOTE: T-SCORE=SD OF THE YOUNG ADULT MEAN.
== END | disposition home or self-care (01) ==
LOC: RADBDWWP 09:18
PROVIDERS: ATTEND Obstetrics & Gynecology
DX: M85.89 Other specified disorders of bone density and structure, multiple sites (principal); Z78.0 Asymptomatic menopausal state
CPT/HCPCS: 77080

== ENCOUNTER → 2022-05-18 | Outpatient (CLI) | payer MEDICARE ==
--- NOTE | 2022-05-19 08:05 | MM ---
Reason for Exam: Screening (asymptomatic). Last screening mammogram was performed 12 month(s) ago. Patient History: Menarche at age 14. First Full-Term at age 26. Postmenopausal. Other cancer. Paternal cousin had breast cancer, age 40. Risk Values: Rachelle 5 year model risk: 1.9%. NCI Lifetime model risk: 5.6%. Prior Study Comparison: 03/20/2019 Bilateral Screening Mammogram, [facility]. 05/14/2020 Bilateral Screening Mammogram, [facility]. 05/15/2021 Bilateral Screening Mammogram, [facility]. Tissue Density: The breast tissue is heterogeneously dense. This may lower the sensitivity of mammography. Findings: Analyzed By CAD. There is no suspicious new group of microcalcifications or new suspicious mass in either breast. Left-sided skin lesions redemonstrated. Overall Assessment: Negative, BI-RAD 1 Management: Screening Mammogram of both breasts in 1 year. A clinical breast exam by your physician is recommended on an annual basis and results should be correlated with mammographic findings. Electronically signed and approved by: Ry Doshi M.D.
== END | disposition home or self-care (01) ==
LOC: RADMAMWWP 09:19
PROVIDERS: ATTEND Obstetrics & Gynecology
DX: Z12.31 Encounter for screening mammogram for malignant neoplasm of breast (principal); Z78.0 Asymptomatic menopausal state; Z80.3 Family history of malignant neoplasm of breast
CPT/HCPCS: 77063; 77067

== ENCOUNTER → 2023-05-31 | Outpatient (CLI) | payer MEDICARE ==
--- NOTE | 2023-06-01 09:40 | MM ---
Reason for Exam: Screening (asymptomatic). Last screening mammogram was performed 12 month(s) ago. Patient History: Menarche at age 14. First Full-Term at age 26. Postmenopausal. Other cancer. Paternal cousin had breast cancer, age 40. Risk Values: Rachelle 5 year model risk: 1.9%. NCI Lifetime model risk: 5.4%. Prior Study Comparison: 05/14/2020 Bilateral Screening Mammogram, [facility]. 05/15/2021 Bilateral Screening Mammogram, [facility]. 05/18/2022 Bilateral MG 3D screening mammo w/cad, [facility]. Tissue Density: The breast tissue is heterogeneously dense. This may lower the sensitivity of mammography. Findings: Analyzed By CAD. There is no suspicious group of microcalcifications or new suspicious mass. Overall Assessment: Negative, BI-RAD 1 Management: Screening Mammogram of both breasts in [address] [facility] will attempt to contact patient to return for supplemental views and ultrasound if indicated. Patient should continue monthly self-breast exams. A clinical breast exam by your physician is recommended on an annual basis. This exam should not preclude additional follow-up of suspicious palpable abnormalities. Note on Rachelle scores and lifetime risk: 1. A Rachelle score greater than 3% is considered moderate risk. If this is the case, consider specialist referral to assess eligibility for a risk reducing agent. 2. If overall lifetime risk for the development of breast cancer is 20% or higher, the patient may qualify for future screening with alternating mammogram and breast MRI. Electronically signed and approved by: Gregory Cueva DO
== END | disposition home or self-care (01) ==
LOC: RADMAMWWP 15:14
PROVIDERS: ATTEND Obstetrics & Gynecology
DX: Z12.31 Encounter for screening mammogram for malignant neoplasm of breast (principal); Z80.3 Family history of malignant neoplasm of breast; Z78.0 Asymptomatic menopausal state
CPT/HCPCS: 77063; 77067

== ENCOUNTER → 2023-07-07 | Outpatient (CLI) | payer MEDICARE ==
--- NOTE | 2023-07-07 23:46 | BD ---
EXAMINATION TYPE: Axial Bone Density DATE OF EXAM: 07/07/2023 CLINICAL HISTORY: 73 years old Female. ICD-10 CODE: M85.88 OTH DISRD OF BONE DENSITY AND STRUCTURE, OT Height: 60.5 Weight: 181.9 FRAX RISK QUESTIONS: Alcohol (3 or more units per day): no Family History (Parent hip fracture): no Glucocorticoids (More than 3mos): no History of Fracture in Adulthood: yes Secondary Osteoporosis: 1. Type 1 Diabetes: no 2. Hyperthyroidism: no 3. Menopause before 45: no 4. Malnutrition: no 5. Chronic liver disease: no Rheumatoid Arthritis: no Current Tobacco Use: no RISK FACTORS HISTORY OF: Hip Fracture (Right/Left): no Spine Fracture: no History of Wrist Fracture: no Surgery to Spine/Hip(right/left)/Wrist (right/left): no Family History of Osteoporosis: Paternal Grandmother Active: yes Diet low in dairy products/other sources of calcium: no Postmenopausal woman: yes Take estrogen and/or progesterone medications: no Lost more than 2 inches in height since high school: yes Frequent falls: no Poor Health: no Hyperparathyroidism: no Adrenal Insufficiency: no MEDICATIONS: Prednisone or other steroids: no Thyroid Medications: Levothyroxine How Long: Past 5 years Osteoporosis Medications: no Additional Medications: Cholesterol Meds, BP Meds x2, Vit D, Calcium, Additional History: Bladder Ca. 2017 EXAM MEASUREMENTS: Bone mineral densitometry was performed using the [employer] System. Bone mineral density as measured about the Lumbar spine is: ----- L1-L4(G/cm2): 1.148 T Score Values are as follows: ----- L1: -2.0 ----- L2: -1.1 ----- L3: -0.2 ----- L4: 1.9 ----- L1-L4: -0.3 Z Score Values are as follows: ----- L1: -0.9 ----- L2: 0.0 ----- L3: 0.9 ----- L4: 3.0 ----- L1-L4: 0.9 Bone mineral density has: increased 3.5 % since study of: 06/16/2021 Bone mineral density about the R hip (g/cm2): 0.949 Bone mineral density about the L hip (g/cm2): 0.915 T Score values are as follows: -----R Neck: -0.1 -----L Neck: -1.1 -----R Total: -0.5 -----L Total: -0.7 Z Score values are as follows: -----R Neck: 1.3 -----L Neck: 0.3 -----R Total: 0.7 -----L Total: 0.4 Bone mineral density has: decreased -1.7 % since study of: 06/16/2021 FRAX%s: The graph provided illustrates a 13.9% chance for a major osteoporotic fx and a 1.6% chance f or the hips probability for fx in 10 years time. IMPRESSION: Normal (Values between +1 and -1 indicate normal bone mass). Consider repeating this study in 5 year s or sooner if there is some new clinical indication. NOTE: T-SCORE=SD OF THE YOUNG ADULT MEAN.
== END | disposition home or self-care (01) ==
LOC: RADBDWWP 14:31
PROVIDERS: ATTEND Obstetrics & Gynecology
DX: M85.89 Other specified disorders of bone density and structure, multiple sites (principal); Z78.0 Asymptomatic menopausal state
CPT/HCPCS: 77080

== ENCOUNTER → 2023-11-22 | Outpatient (CLI) | payer MEDICARE ==
--- NOTE | 2023-11-22 11:22 | XR ---
EXAMINATION TYPE: XR chest 2V DATE OF EXAM: 11/22/2023 10:42 AM CLINICAL INDICATION:Female, 73 years old with history of J18.9 pneumonia; H COMPARISON: Chest radiographs from 06/11/2019 TECHNIQUE: XR chest 2V Frontal and lateral views of the chest. FINDINGS: Lungs/Pleura: There is no evidence of pleural effusion, focal consolidation, or pneumothorax. Pulmonary vascularity: Unremarkable. Heart/mediastinum: Cardiomediastinal silhouette is unremarkable. Musculoskeletal: No acute osseous pathology. IMPRESSION: No acute cardiopulmonary disease/process.
== END | disposition home or self-care (01) ==
LOC: RADXRMAIN 10:21
PROVIDERS: ATTEND Internal Medicine
DX: J18.9 Pneumonia, unspecified organism (principal); R06.02 Shortness of breath
CPT/HCPCS: 71046

== ENCOUNTER 2023-11-29 08:47 | Inpatient (IN) | payer MEDICARE ==
[2023-11-29 09:43] LABS: Basophils % (A) 0 %; Eosinophils # (A) 0.1 k/uL (0-0.7); Eosinophils % (A) 1 %; HCT 35.5 % (34.0-46.0); Hypochromasia Slight; Lymphocytes % (A) 13 %; MCH 26.5 pg (25.0-35.0); MCHC 30.8 g/dL (31.0-37.0); MCV 85.9 fL (80.0-100.0); Mean Platelet Volume 9.1; Monocytes # (A) 0.3 k/uL (0-1.0); Monocytes % (A) 4 %; Neutrophils # (A) 6.7 k/uL (1.3-7.7); Neutrophils % (A) 82 %; Platelet Count 253 k/uL (150-450); RBC 4.14 m/uL (3.80-5.40); WBC 8.2 k/uL (3.8-10.6)
--- NOTE | 2023-11-29 09:47 | ED ---
General Adult HPI - General Chief complaint: Shortness of Breath Stated complaint: SOB Time Seen by Provider: 11/29/23 09:06 Source: patient, RN notes reviewed Mode of arrival: wheelchair Limitations: no limitations - History of Present Illness Initial comments: 73-year-old female presents emergency department chief complaint of shortness of breath. She states she has had increasing shortness of breath last 2 weeks. Patient saw her PCP on Tuesday who performed EKG with no acute changes. Patient saw health sciences dean to schedule for stress test tomorrow. Patient states she has no history of CHF, COPD asthma. She states her shortness of breath is with exertion she states she is extremely dyspneic after 4 steps. She states minimal activity causes her symptoms she denies any orthopnea denies any resting shortness of breath no URI symptoms. - Related Data Home Medications Medication Instructions Recorded Confirmed Atorvastatin [Lipitor] 40 mg PO HS 07/17/19 11/29/23 Fexofenadine HCl [Jasmin Allergy] 180 mg PO HS 07/17/19 11/29/23 Levothyroxine Sodium [Synthroid] 75 mcg PO DAILY 07/17/19 11/29/23 Ubidecarenone [Co Q-10] 100 mg PO HS 07/17/19 11/29/23 amLODIPine BESYLATE [Norvasc] 5 mg PO HS 07/17/19 11/29/23 atenoloL [Tenormin] 25 mg PO DAILY 07/17/19 11/29/23 hydroCHLOROthiazide 12.5 mg PO DAILY 07/17/19 11/29/23 terbinafine HCL [LamISIL] 250 mg PO HS 07/17/19 11/29/23 Calcium Carbonate [Tums] 500 mg PO QID 11/29/23 11/29/23 Cholecalciferol [Vitamin D3 (25 25 mcg PO DAILY 11/29/23 11/29/23 Mcg = 1000 Iu)] Magnesium 250 mg PO HS 11/29/23 11/29/23 Naproxen Sodium [Aleve] 220 mg PO BID PRN 11/29/23 11/29/23 Allergies Allergy/AdvReac Type Severity Reaction Status Date / Time No Known Allergies Allergy Verified 11/29/23 10:37 Review of Systems ROS Statement: Those systems with pertinent positive or pertinent negative responses have been documented in the HPI. ROS Other: All systems not noted in ROS Statement are negative. Past Medical History Past Medical History: Cancer, Hypertension, Osteoarthritis (OA) Additional Past Medical History / Comment(s): MIGRAINES, HX OF PALPITATIONS WITH EARLY MENOPAUSE-2011 EPISODE OF SENSATION RADIATING UP NECK AND ACROSS SHOULDERS & BP WAS ELEVATED WITH ELEVATED TROPONINS, AND JUN 2019 BP SPIKED- TIGHTNESS IN CHEST SEEN IN ER., SEASONAL ALLERGIES, 2017 BLADDER CANCER WITH SURGERY., ROSEACEA. History of Any Multi-Drug Resistant Organisms: None Reported Past Surgical History: Bladder Surgery, Heart Catheterization Additional Past Surgical History / Comment(s): CYSTOSCOPYS, GROWTH IN BLADDER REMOVED. Past Anesthesia/Blood Transfusion Reactions: No Reported Reaction Past Psychological History: No Psychological Hx Reported Past Alcohol Use History: Rare Past Drug Use History: None Reported - Past Family History Mother Family Medical History: Cancer Additional Family Medical History / Comment(s): COLON CANCER Brother(s) Family Medical History: Cancer Additional Family Medical History / Comment(s): COLON CANCER General Exam Limitations: no limitations General appearance: alert, in no apparent distress Head exam: Present: atraumatic, normocephalic, normal inspection Eye exam: Present: normal appearance, PERRL, EOMI. Absent: scleral icterus, conjunctival injection, periorbital swelling ENT exam: Present: normal exam, normal oropharynx, mucous membranes moist Neck exam: Present: normal inspection, full ROM. Absent: tenderness, meningismus, lymphadenopathy Respiratory exam: Present: normal lung sounds bilaterally. Absent: respiratory distress, wheezes, rales, rhonchi, stridor Cardiovascular Exam: Present: regular rate, normal rhythm, normal heart sounds. Absent: systolic murmur, diastolic murmur, rubs, gallop, clicks GI/Abdominal exam: Present: soft, normal bowel sounds. Absent: distended, tenderness, guarding, rebound, rigid Course Vital Signs 11/29/23 11/29/23 11/29/23 09:01 09:30 09:40 Temperature 98.2 F Pulse Rate 65 66 64 Respiratory 16 16 16 Rate Blood Pressure 100/63 117/58 116/66 O2 Sat by Pulse 85 L 92 L 92 L Oximetry EKG Findings - EKG Comments: EKG Findings:: EKG performed at 9: 11 sinus rhythm rate of 65 MS 163 QRS 98 QT/QTc 449/461 - EKG Results: EKG: interpreted by KELLI Medical Decision Making - Medical Decision Making Was pt. sent in by a medical professional or institution (, [facility], [facility], urgent care, hospital, or [facility]...) When possible be specific @ -No Did you speak to anyone other than the patient for history (EMS, parent, family, police, friend...)? What history was obtained from this source @ -No Did you review nursing and triage notes (agree or disagree)? Why? @ -I reviewed and agree with nursing and triage notes Were old charts reviewed (outside hosp., previous admission, EMS record, old EKG, old radiological studies, urgent care reports/EKG's, [facility] records)? Report findings @ -No old charts were reviewed Differential Diagnosis (chest pain, altered mental status, abdominal pain women, abdominal pain men, vaginal bleeding, weakness, fever, dyspnea, syncope, headache, dizziness, GI bleed, back pain, seizure, CVA, palpatations, mental health, musculoskeletal)? @ -Differential Dyspnea: Coronary syndrome, arrhythmia, tamponade, asthma, COPD, pulmonary embolism, pneumonia, pneumothorax, pulmonary effusion, anaphylaxis, diabetic ketoacidosis, flailed chest, pulmonary contusion, diaphragmatic rupture, anemia, neuromuscular, this is not meant to be an all-inclusive list. EKG interpreted by me (3pts min.). @ -As above X-rays interpreted by me (1pt min.). @ -Chest ray shows no acute cardiopulmonary process CT interpreted by me (1pt min.). @ -CT angio chest bilateral pulmonary embolism no saddle PE no evidence of heart strain U/S interpreted by me (1pt. min.). @ -None done What testing was considered but not performed or refused? (CT, X-rays, U/S, labs)? Why? @ -None What meds were considered but not given or refused? Why? @ -None Did you discuss the management of the patient with other professionals (professionals i.e. , [facility], [facility], lab, RT, psych nurse, social worker masters, taxation consultant, teacher, sustainability officer, keycase assembler)? Give summary @ -Dr. Daigle for admission with consult to vascular and pulmonary Was smoking cessation discussed for >3mins.? @ -No Was critical care preformed (if so, how long)? @ -35 minutes Were there social determinants of health that impacted care today? How? (Homelessness, low income, unemployed, alcoholism, drug addiction, transportation, low edu. Level, literacy, decrease access to med. care, long term, rehab)? @ -No Was there de-escalation of care discussed even if they declined (Discuss DNR or withdrawal of care, Hospice)? DNR status @ -No What co-morbidities impacted this encounter? (DM, HTN, Smoking, COPD, CAD, Cancer, CVA, ARF, Chemo, Hep., AIDS, mental health diagnosis, sleep apnea, morbid obesity)? @ -None Was patient admitted / discharged? Hospital course, mention meds given and route, prescriptions, significant lab abnormalities, going to OR and other pertinent info. @ -Admitted just down patient has evidence of bilateral pulmonary embolism, hypoxia, will have bilateral lower extremity ultrasounds, echocardiogram vascular and pulmonary evaluation patient was started on high-dose heparin patient was placed on clinical research monitor and admitted in stable condition with close monitoring. Undiagnosed new problem with uncertain prognosis? @ -No Drug Therapy requiring intensive monitoring for toxicity (Heparin, Nitro, Insulin, Cardizem)? @ -Heparin Were any procedures done? @ -No Diagnosis/symptom? @ -Bilateral pulmonary embolism Acute, or Chronic, or Acute on Chronic? @ -Acute Uncomplicated (without systemic symptoms) or Complicated (systemic symptoms)? @ -Complicated Side effects of treatment? @ -No Exacerbation, Progression, or Severe Exacerbation? @ -No Poses a threat to life or bodily function? How? (Chest pain, USA, ND, pneumonia, PE, COPD, DKA, ARF, appy, cholecystitis, CVA, Diverticulitis, Homicidal, Suicidal, threat to staff... and all critical care pts) @ -Yes could cause pulmonary/cardiac arrest - Lab Data Result diagrams: 11/29/23 09:34 11/29/23 09:34 Lab Results 11/29/23 11/29/23 11/29/23 Range/Units 09:34 09:34 09:34 WBC 8.2 (3.8-10.6) k/uL RBC 4.14 (3.80-5.40) m/uL Hgb 11.0 L (11.4-16.0) gm/dL Hct 35.5 (34.0-46.0) % MCV 85.9 (80.0-100.0) fL MCH 26.5 (25.0-35.0) pg MCHC 30.8 L (31.0-37.0) g/dL RDW 14.0 (11.5-15.5) % Plt Count 253 (150-450) k/uL MPV 9.1 Neutrophils % 82 % Lymphocytes % 13 % Monocytes % 4 % Eosinophils % 1 % Basophils % 0 % Neutrophils # 6.7 (1.3-7.7) k/uL Lymphocytes # 1.0 (1.0-4.8) k/uL Monocytes # 0.3 (0-1.0) k/uL Eosinophils # 0.1 (0-0.7) k/uL Basophils # 0.0 (0-0.2) k/uL Hypochromasia Slight PT 11.5 (10.0-12.5) sec INR 1.1 (<1.2) APTT 22.3 (22.0-30.0) sec D-Dimer 4.80 H (<0.60) mg/L FEU Sodium 140 (137-145) mmol/L Potassium 3.7 (3.5-5.1) mmol/L Chloride 109 H (98-107) mmol/L Carbon Dioxide 20 L (22-30) mmol/L Anion Gap 11 mmol/L BUN 17 (7-17) mg/dL Creatinine 0.87 (0.52-1.04) mg/dL Est GFR (CKD-EPI)AfAm 77 (>60 ml/min/1.73 sqM) Est GFR (CKD-EPI)NonAf 67 (>60 ml/min/1.73 sqM) Glucose 147 H (74-99) mg/dL Plasma Lactic Acid Rojelio (0.7-2.0) mmol/L Calcium 9.6 (8.4-10.2) mg/dL Magnesium 1.9 (1.6-2.3) mg/dL Total Bilirubin 0.7 (0.2-1.3) mg/dL AST 25 (14-36) U/L ALT 16 (4-34) U/L Alkaline Phosphatase 139 H (38-126) U/L Troponin I (0.000-0.034) ng/mL NT-Pro-B Natriuret Pep 2990 pg/mL Total Protein 6.9 (6.3-8.2) g/dL Albumin 4.2 (3.5-5.0) g/dL 11/29/23 11/29/23 Range/Units 09:34 09:34 WBC (3.8-10.6) k/uL RBC (3.80-5.40) m/uL Hgb (11.4-16.0) gm/dL Hct (34.0-46.0) % MCV (80.0-100.0) fL MCH (25.0-35.0) pg MCHC (31.0-37.0) g/dL RDW (11.5-15.5) % Plt Count (150-450) k/uL MPV Neutrophils % % Lymphocytes % % Monocytes % % Eosinophils % % Basophils % % Neutrophils # (1.3-7.7) k/uL Lymphocytes # (1.0-4.8) k/uL Monocytes # (0-1.0) k/uL Eosinophils # (0-0.7) k/uL Basophils # (0-0.2) k/uL Hypochromasia PT (10.0-12.5) sec INR (<1.2) APTT (22.0-30.0) sec D-Dimer (<0.60) mg/L FEU Sodium (137-145) mmol/L Potassium (3.5-5.1) mmol/L Chloride (98-107) mmol/L Carbon Dioxide (22-30) mmol/L Anion Gap mmol/L BUN (7-17) mg/dL Creatinine (0.52-1.04) mg/dL Est GFR (CKD-EPI)AfAm (>60 ml/min/1.73 sqM) Est GFR (CKD-EPI)NonAf (>60 ml/min/1.73 sqM) Glucose (74-99) mg/dL Plasma Lactic Acid Rojelio 1.9 (0.7-2.0) mmol/L Calcium (8.4-10.2) mg/dL Magnesium (1.6-2.3) mg/dL Total Bilirubin (0.2-1.3) mg/dL AST (14-36) U/L ALT (4-34) U/L Alkaline Phosphatase (38-126) U/L Troponin I 0.054 H* (0.000-0.034) ng/mL NT-Pro-B Natriuret Pep pg/mL Total Protein (6.3-8.2) g/dL Albumin (3.5-5.0) g/dL Critical Care Time Critical Care Time: Yes Total Critical Care Time: 35 Disposition Clinical Impression: Bilateral pulmonary embolism Disposition: ADMITTED IP TO THIS [facility] Condition: Serious Time of Disposition: 11:11
[2023-11-29 10:01] LABS: INR 1.1 (<1.2); Partial Thromboplastin Time 22.3 sec (22.0-30.0); Prothrombin Time 11.5 sec (10.0-12.5)
[2023-11-29 10:09] LABS: ALT 16 U/L (4-34); AST 25 U/L (14-36); African American GFR (CKD) 77 (>60 ml/min/1.73 sqM); Albumin 4.2 g/dL (3.5-5.0); Alkaline Phosphatase 139 U/L (38-126); Anion Gap 11 mmol/L; Blood Urea Nitrogen 17 mg/dL (7-17); Calcium 9.6 mg/dL (8.4-10.2); Carbon Dioxide 20 mmol/L (22-30); Chloride 109 mmol/L (98-107); Glucose 147 mg/dL (74-99); Magnesium 1.9 mg/dL (1.6-2.3); Non-African American GFR(CKD) 67 (>60 ml/min/1.73 sqM); Potassium 3.7 mmol/L (3.5-5.1); Sodium 140 mmol/L (137-145); Total Bilirubin 0.7 mg/dL (0.2-1.3); Total Protein 6.9 g/dL (6.3-8.2)
[2023-11-29 10:17] LABS: NT-Pro-B-Type Natriuretic Pept 2990 pg/mL
--- NOTE | 2023-11-29 10:38 | XR ---
EXAMINATION TYPE: XR chest 2V DATE OF EXAM: 11/29/2023 COMPARISON: None INDICATION: Difficulty breathing x2 weeks increasing today TECHNIQUE: Frontal and lateral views of the chest are obtained. FINDINGS: The heart size is normal. The pulmonary vasculature is normal. The lungs are clear. Small hiatal hernia is present. IMPRESSION: 1. No acute pulmonary process. 2. Small hiatal hernia. 3. Exam is stable from comparison
[2023-11-29] MEDS ORDERED: HEPARIN SODIUM 1,000 UN/ML (10ML VL) IV PRN (10:56)
--- NOTE | 2023-11-29 10:59 | CT ---
CTA CHEST EXAMINATION TYPE: CT chest angio for PE DATE OF EXAM: 11/29/2023 INDICATION: Exertional Dyspnea, hypoxia, elevated D-dimer CT DLP: 261.2 mGycm, Automated exposure control for dose reduction was used. CONTRAST: Patient injected with 100 ml mL of Isovue 370. COMPARISON: None TECHNIQUE: CT of the chest is performed on a spiral scan at 2 mm thick sections. Study is performed with intravenous contrast timed for evaluation for pulmonary embolism. This will limit additional po rtions of the evaluation. 3-D MIP images reconstructed by the technologist are reviewed on the compu ter in the coronal and sagittal planes. FINDINGS: There is a large filling defect within the left proximal pulmonary arterial branch. Smaller right upp er lobe branch pulmonary emboli are present. There are multiple large pulmonary lower lung friend. No right heart strain is evident. Report was called to emergency room at the time of interpretation. No mediastinal or hilar adenopathy enlarged by CT criteria is evident. The ascending aorta diameter at the level of the main pulmonary artery is 3.0 cm. The main pulmonary artery diameter at the bifurcation is 3.1 cm. There is a groundglass opacity at the level of the aortic arch. Limited CT sections were through the upper abdomen. Moderate hiatal hernia is present. IMPRESSION: 1. Multiple large central pulmonary emboli within first branches.
[2023-11-29] MEDS ORDERED: NALOXONE 0.4 MG/ML 1 ML VIAL IV PRN (11:11)
[2023-11-29] MEDS ORDERED: ACETAMINOPHEN TAB 325 MG TAB PO PRN (11:11)
[2023-11-29] MEDS: HEPARIN SODIUM 1,000 UN/ML (10ML VL) IV ONE (11:22)
[2023-11-29] MEDS: HEPARIN SOD,PORK IN 0.45% NACL 25,000 UNIT in 0.45% NACL 1 250ML.BAG IV SCH (11:23)
--- NOTE | 2023-11-29 12:00 | US ---
EXAMINATION TYPE: US venous doppler duplex LE BI DATE OF EXAM: 11/29/2023 11:11 AM COMPARISON: NONE CLINICAL INDICATION: Female, 73 years old with history of PE, assess for DVT; Left lower extremity va ricositis SIDE PERFORMED: Bilateral TECHNIQUE: The lower extremity deep venous system is examined utilizing real time linear array sonog karli with graded compression, doppler sonography and color-flow sonography. VESSELS IMAGED: Common Femoral Vein Deep Femoral Vein Greater Saphenous Vein * Femoral Vein Popliteal Vein Small Saphenous Vein * Proximal Calf Veins (* superficial vessels) Right Leg: Negative for DVT Left Leg: Negative for DVT IMPRESSION: 1. Bilateral lower extremity renal ultrasound negative for deep venous thrombosis at this time
--- NOTE | 2023-11-29 16:37 | P.CNPUL ---
History of Present Illness Consult date: 11/29/23 Requesting physician: David Jaimes Reason for consult: dyspnea, hypoxemia, pulmonary embolism Chief complaint: Dyspnea on exertion History of present illness: This is a very pleasant 73-year-old female patient with a known history of bladder cancer postsurgery in 2017, hypertension, hypothyroidism, hyperlipidemia, left lower extremity phlebitis, arthritis. Over the past 2 weeks she has been having progressive shortness of breath with less and less activity tolerance. She had been seen by her PCP last week and EKG revealed no acute changes. She was then seen by cardiology and a stress test was scheduled for tomorrow. Her shortness of breath was worse today she presented here to the ER instead. Chest x-ray revealed no acute pulmonary process. CT angiogram revealed multiple large central pulmonary emboli within the first branches. She was initiated on heparin drip. She is seen today in consultation in the emergency department. She is currently resting fairly comfortably on the stretcher. No worsening shortness of breath cough or congestion. No hemoptysis. No chest pain or palpitations. She denied any injury to the lower extremities. Dopplers were negative for DVT. No long travels. No active cancer. No history of previous PE. No family history. White count 8.2. Hemoglobin 11.0. Platelets 253. D-dimer was 4.80. Sodium 140. Potassium 3.7. Bicarb 20. BUN 17. Creatinine 0.87. Glucose 147. Troponin 0.054. proBNP 2990. She is requiring 4 L of oxygen to maintain O2 saturation in the 90s. She has been afebrile. Hemodynamically stable. Echocardiogram pending. Review of Systems REVIEW OF SYSTEMS: CONSTITUTIONAL: Denies any recent significant weight loss or weight gain. EYES: Denies change in vision. EARS, NOSE, MOUTH, THROAT: Denies headaches, denies sore throat. CARDIOVASCULAR: Denies chest pain, palpitations or syncopal episodes. RESPIRATORY: Positive for shortness of breath, no cough, congestion or hemoptysis. GASTROINTESTINAL: Denies change in appetite, denies abdominal pain GENITOURINARY: Denies hematuria, denies infections. MUSKULOSKELETAL: Denies pain, denies swelling. INTEGUMENTARY: Denies rash, denies eczema. NEUROLOGICAL: Denies recent memory loss, no recent seizure activity. PSYCHIATRIC: Denies anxiety, denies depression. HEMATOLOGIC/LYMPHATIC: Denies anemia, denies enlarged lymph nodes. Past Medical History Past Medical History: Cancer, Hypertension, Osteoarthritis (OA) Additional Past Medical History / Comment(s): MIGRAINES, HX OF PALPITATIONS WITH EARLY MENOPAUSE-2011 EPISODE OF SENSATION RADIATING UP NECK AND ACROSS SHOULDERS & BP WAS ELEVATED WITH ELEVATED TROPONINS, AND JUN 2019 BP SPIKED- TIGHTNESS IN CHEST SEEN IN ER., SEASONAL ALLERGIES, 2017 BLADDER CANCER WITH SURGERY., ROSEACEA. History of Any Multi-Drug Resistant Organisms: None Reported Past Surgical History: Bladder Surgery, Heart Catheterization Additional Past Surgical History / Comment(s): CYSTOSCOPYS, GROWTH IN BLADDER REMOVED. Past Anesthesia/Blood Transfusion Reactions: No Reported Reaction Past Psychological History: No Psychological Hx Reported Past Alcohol Use History: Rare Past Drug Use History: None Reported - Past Family History Mother Family Medical History: Cancer Additional Family Medical History / Comment(s): COLON CANCER Brother(s) Family Medical History: Cancer Additional Family Medical History / Comment(s): COLON CANCER Medications and Allergies Home Medications Medication Instructions Recorded Confirmed Type Atorvastatin [Lipitor] 40 mg PO HS 07/17/19 11/29/23 History Fexofenadine HCl [Jasmin Allergy] 180 mg PO HS 07/17/19 11/29/23 History Levothyroxine Sodium [Synthroid] 75 mcg PO DAILY 07/17/19 11/29/23 History Ubidecarenone [Co Q-10] 100 mg PO HS 07/17/19 11/29/23 History amLODIPine BESYLATE [Norvasc] 5 mg PO HS 07/17/19 11/29/23 History atenoloL [Tenormin] 25 mg PO DAILY 07/17/19 11/29/23 History hydroCHLOROthiazide 12.5 mg PO DAILY 07/17/19 11/29/23 History terbinafine HCL [LamISIL] 250 mg PO HS 07/17/19 11/29/23 History Calcium Carbonate [Tums] 500 mg PO QID 11/29/23 11/29/23 History Cholecalciferol [Vitamin D3 (25 25 mcg PO DAILY 11/29/23 11/29/23 History Mcg = 1000 Iu)] Magnesium 250 mg PO HS 11/29/23 11/29/23 History Naproxen Sodium [Aleve] 220 mg PO BID PRN 11/29/23 11/29/23 History Allergies Allergy/AdvReac Type Severity Reaction Status Date / Time No Known Allergies Allergy Verified 11/29/23 10:37 Physical Exam Vitals: Vital Signs Temp Pulse Resp BP Pulse Ox 11/29/23 12:00 62 18 115/60 95 11/29/23 11:00 66 18 112/64 94 L 11/29/23 10:00 64 20 102/58 90 L 11/29/23 09:40 64 16 116/66 92 L 11/29/23 09:30 66 16 117/58 92 L 11/29/23 09:01 98.2 F 65 16 100/63 85 L Intake and Output 11/29/23 11/29/23 11/29/23 06:59 14:59 22:59 Other: Weight 79.379 kg GENERAL EXAM: Alert, pleasant 73-year-old female, on 4 L nasal cannula, fairly comfortable in no apparent distress. HEAD: Normocephalic. EYES: Normal reaction of pupils, equal size. NOSE: Clear with pink turbinates. THROAT: No erythema or exudates. NECK: No masses, no JVD. CHEST: No chest wall deformity. LUNGS: Equal air entry with no crackles, wheeze, rhonchi or dullness. CVS: S1 and S2 normal with no audible murmur, regular rhythm. ABDOMEN: No hepatosplenomegaly, normal bowel sounds, no guarding or rigidity. SPINE: No scoliosis or deformity SKIN: No rashes CENTRAL NERVOUS SYSTEM: No focal deficits, tone is normal in all 4 extremities. EXTREMITIES: There is no peripheral edema. No clubbing, no cyanosis. Peripheral pulses are intact. Results - Laboratory Findings CBC and BMP: 11/29/23 09:34 11/29/23 09:34 PT/INR, D-dimer PT 11.5 sec (10.0-12.5) 11/29/23 09:34 INR 1.1 (<1.2) 11/29/23 09:34 D-Dimer 4.80 mg/L FEU (<0.60) H 11/29/23 09:34 Abnormal lab findings: Abnormal Labs 11/29/23 11/29/23 11/29/23 09:34 09:34 09:34 Hgb 11.0 L MCHC 30.8 L D-Dimer 4.80 H Chloride 109 H Carbon Dioxide 20 L Glucose 147 H Alkaline Phosphatase 139 H Troponin I 11/29/23 09:34 Hgb MCHC D-Dimer Chloride Carbon Dioxide Glucose Alkaline Phosphatase Troponin I 0.054 H* - Diagnostic Findings Chest x-ray: image reviewed CT scan - chest: image reviewed Assessment and Plan Assessment: Acute hypoxemic respiratory failure secondary to acute multiple large central pulmonary emboli within the first branches. No obvious provoking factor. Dopplers of the lower extremity negative for DVT. Echocardiogram pending. Hypertension Hyperlipidemia Hypothyroidism History of bladder cancer, surgically removed in 2017 History of arthritis History of phlebitis of the left lower extremity Plan: The patient was seen and evaluated Chest x-ray, CT angiogram, labs and medications reviewed Continue on a heparin drip Echocardiogram pending Vascular surgery consult Titrate the FiO2 as tolerated We will continue to follow and make further recommendations based on her clinical status I have personally seen and examined the patient, performed the documentation and the assessment and plan as written. Number of minutes spent on the visit: 20.
[2023-11-29 17:41] LABS: Appearance,Urine Clear (Clear); Bilirubin,Urine Negative (Negative); Blood,Urine Negative (Negative); Color,Urine Colorless; Glucose,Urine (UA) Negative (Negative); Ketones,Urine Trace (Negative); Leukocyte Esterase,Urine Large (Negative); Nitrite,Urine Negative (Negative); Protein,Urine Negative (Negative); RBC,Urine 3 /hpf (0-5); Squamous Epithelial Cell,Urine 3 /hpf (0-4); Urobilinogen,Urine <2.0 mg/dL (<2.0); WBC,Urine 6 /hpf (0-5)
[2023-11-29] MEDS: CALCIUM CARBONATE 500 MG CHEWABLE PO SCH (19:24)
[2023-11-29] MEDS ORDERED: NON FORMULARY DRUG (Ubidecarenone [Co Q-10] 100 MG Capsule) PO SCH (21:00)
--- NOTE | 2023-11-29 21:17 | HP ---
HISTORY AND PHYSICAL CHIEF COMPLAINT: Shortness of breath. HISTORY OF PRESENT ILLNESS: This is a 73-year-old woman with a past medical history of hypertension, DJD, being followed by Dr. Osman Schwartz in the outpatient. She is complaining of increased shortness of breath over the past 2 weeks. The patient is unable to take a bath and the patient came to [facility]. The patient has apparently had a stress test tomorrow. The patient did not have any history of COPD or asthma. Evaluation in the ER showed D-dimer elevated to 4.80, and CTA of the chest was done which showed multiple large central pulmonary embolism bilaterally and the patient admitted for further evaluation. Heparin was initiated. There is no history of any fever, rigors, or chills at this time. Leg ultrasound was negative for DVT. PAST MEDICAL HISTORY: Hypertension, DJD, rest of the history and rest of the chart is also reviewed. HOME MEDICATIONS: Reviewed include vitamin D3, doses and rest of medications noted. ALLERGIES: None. FAMILY HISTORY: History of colon cancer. SOCIAL HISTORY: No history of smoking or alcohol. REVIEW OF SYSTEMS: A 14-point review is negative except as mentioned earlier. PHYSICAL EXAMINATION: VITAL SIGNS: Pulse 62, blood pressure 115/60, respirations 18. CHEST: Few scattered rhonchi and crackles. CARDIOVASCULAR: S1, S2. ABDOMEN: Soft, nontender. LEGS: Minimal bilateral leg edema. NERVOUS SYSTEM: No focal deficits. SKIN: No ulcer, rash, bleeding. JOINTS: No active deforming arthropathy. LABORATORY DATA: D-dimer 4.80, troponin 0.05. ASSESSMENT: 1. Shortness of breath, acute bilateral pulmonary embolism. 2. Elevated D-dimer. 3. Troponin 0.054, indeterminate, possibly secondary to pulmonary embolus. 4. Hypertension. 5. History of cardiac catheterization. RECOMMENDATIONS AND DISCUSSION: This 73-year-old woman presented with multiple complex medical issues, we will monitor the patient closely. Continue the current medications. Will recommend cardiology, pulmonology evaluation, IV heparin, resume the home medications. Prognosis guarded because of multiple complex medical issues. Further recommendations to follow. MMODL / IJN: [id number] /
[2023-11-29] MEDS: MAGNESIUM OXIDE 400 MG TAB PO SCH (21:29)
[2023-11-29] MEDS: ATORVASTATIN 40 MG TAB PO SCH (21:29)
[2023-11-29] MEDS: LORATADINE 10 MG TAB PO SCH (21:29)
[2023-11-29] MEDS: amLODIPine 5 MG TAB PO SCH (21:29)
[2023-11-30 03:43] LABS: Basophils % (A) 0 %; Eosinophils # (A) 0.1 k/uL (0-0.7); Eosinophils % (A) 1 %; HCT 35.6 % (34.0-46.0); HGB 11.2 gm/dL (11.4-16.0); Hypochromasia Slight; Lymphocytes # (A) 2.4 k/uL (1.0-4.8); Lymphocytes % (A) 25 %; MCH 26.9 pg (25.0-35.0); MCHC 31.5 g/dL (31.0-37.0); MCV 85.3 fL (80.0-100.0); Mean Platelet Volume 8.8; Monocytes # (A) 0.5 k/uL (0-1.0); Monocytes % (A) 5 %; Neutrophils # (A) 6.2 k/uL (1.3-7.7); Neutrophils % (A) 67 %; Platelet Count 251 k/uL (150-450); RBC 4.17 m/uL (3.80-5.40); RDW 13.9 % (11.5-15.5); WBC 9.3 k/uL (3.8-10.6)
[2023-11-30 04:07] LABS: African American GFR (CKD) 79 (>60 ml/min/1.73 sqM); Blood Urea Nitrogen 14 mg/dL (7-17); Carbon Dioxide 21 mmol/L (22-30); Non-African American GFR(CKD) 68 (>60 ml/min/1.73 sqM)
[2023-11-30 04:41] LABS: Anion Gap 8 mmol/L; Calcium 9.5 mg/dL (8.4-10.2); Chloride 110 mmol/L (98-107); Glucose 90 mg/dL (74-99); Potassium 3.7 mmol/L (3.5-5.1); Sodium 139 mmol/L (137-145)
[2023-11-30] MEDS: LEVOTHYROXINE 75 MCG TAB PO SCH (10:29)
[2023-11-30] MEDS: hydroCHLOROthiazide 12.5 MG CAP PO SCH (10:29)
[2023-11-30] MEDS: CHOLECALCIFEROL 25 MCG (1000 IU) TABLET PO SCH (10:29)
[2023-11-30] MEDS: atenoloL 25 MG TAB PO SCH (10:29)
--- NOTE | 2023-11-30 11:32 | P.GSCN ---
History of Present Illness Consult date: 11/30/23 Reason for Consult: Bilateral pulmonary emboli Requesting physician: Mauricio Wild History of present illness: This is a pleasant 73-year-old female who presented to the emergency department yesterday with complaints of shortness of breath. She has a past medical history including bladder cancer treated treated in 2017, hypothyroidism and hyperlipidemia. She states that she has been having shortness of breath akash ecially with exertion over the last couple weeks duration. She follows with Dr. Edgar with cardiology and was scheduled for a stress test today in his office. She states that she became very short of breath yesterday and came to the emergency department for further evaluation. She was noted to have elevated D- dimer, underwent a CT angiogram of the chest which was positive for all multiple large central pulmonary emboli. Vascular surgery was consulted for pulmonary emboli. Patient also underwent venous duplex of bilateral lower extremities which was negative for DVT. She states she is a none smoker, no recent surgery, traveling and no history of blood clots in the past. Patient does have a sedentary lifestyle due to arthritis and pain in her legs and hips and back. Patient currently is sitting up in the emergency department in bed, appears in no acute distress. She is on 4 L nasal cannula. She denies any shortness of breath or chest pain at this time. Echocardiogram was ordered yesterday and patient is awaiting study. Review of Systems A 14 point review systems was completed all pertinent positives and negatives as stated in the HPI. Past Medical History Past Medical History: Cancer, Hypertension, Osteoarthritis (OA) Additional Past Medical History / Comment(s): MIGRAINES, HX OF PALPITATIONS WITH EARLY MENOPAUSE-2011 EPISODE OF SENSATION RADIATING UP NECK AND ACROSS SHOULDERS & BP WAS ELEVATED WITH ELEVATED TROPONINS, AND JUN 2019 BP SPIKED- TIGHTNESS IN CHEST SEEN IN ER., SEASONAL ALLERGIES, 2017 BLADDER CANCER WITH SURGERY., ROSEACEA. History of Any Multi-Drug Resistant Organisms: None Reported Past Surgical History: Bladder Surgery, Heart Catheterization Additional Past Surgical History / Comment(s): CYSTOSCOPYS, GROWTH IN BLADDER REMOVED. Past Anesthesia/Blood Transfusion Reactions: No Reported Reaction Past Psychological History: No Psychological Hx Reported Past Alcohol Use History: Rare Past Drug Use History: None Reported - Past Family History Mother Family Medical History: Cancer Additional Family Medical History / Comment(s): COLON CANCER Brother(s) Family Medical History: Cancer Additional Family Medical History / Comment(s): COLON CANCER Medications and Allergies Home Medications Medication Instructions Recorded Confirmed Type Atorvastatin [Lipitor] 40 mg PO HS 07/17/19 11/29/23 History Fexofenadine HCl [Jasmin Allergy] 180 mg PO HS 07/17/19 11/29/23 History Levothyroxine Sodium [Synthroid] 75 mcg PO DAILY 07/17/19 11/29/23 History Ubidecarenone [Co Q-10] 100 mg PO HS 07/17/19 11/29/23 History amLODIPine BESYLATE [Norvasc] 5 mg PO HS 07/17/19 11/29/23 History atenoloL [Tenormin] 25 mg PO DAILY 07/17/19 11/29/23 History hydroCHLOROthiazide 12.5 mg PO DAILY 07/17/19 11/29/23 History terbinafine HCL [LamISIL] 250 mg PO HS 07/17/19 11/29/23 History Calcium Carbonate [Tums] 500 mg PO QID 11/29/23 11/29/23 History Cholecalciferol [Vitamin D3 (25 25 mcg PO DAILY 11/29/23 11/29/23 History Mcg = 1000 Iu)] Magnesium 250 mg PO HS 11/29/23 11/29/23 History Naproxen Sodium [Aleve] 220 mg PO BID PRN 11/29/23 11/29/23 History Allergies Allergy/AdvReac Type Severity Reaction Status Date / Time No Known Allergies Allergy Verified 11/29/23 10:37 Surgical - Exam Vital Signs Temp Pulse Resp BP Pulse Ox 98.2 F 65 16 100/63 85 L 11/29/23 09:01 11/29/23 09:01 11/29/23 09:01 11/29/23 09:01 11/29/23 09:01 General appearance: The patient is alert, oriented, appears in no acute distress. HET: Head is normocephalic and atraumatic. Pupils are equal and reactive. Neck: Supple. Heart: Regular. Lungs: Equal expansion, normal respiratory effort. Abdomen: Soft, nontender, nondistended. Extremities: Normal skin color and turgor. Palpable DP pulses. Neurological: No focal deficits. Alert and oriented x 3. Results - Labs 11/30/23 03:15 11/30/23 03:15 Abnormal Lab Results - Last 24 Hours (Table) 11/29/23 11/29/23 11/29/23 Range/Units 09:34 09:34 09:34 Hgb 11.0 L (11.4-16.0) gm/dL MCHC 30.8 L (31.0-37.0) g/dL APTT (22.0-30.0) sec D-Dimer 4.80 H (<0.60) mg/L FEU Chloride 109 H (98-107) mmol/L Carbon Dioxide 20 L (22-30) mmol/L Glucose 147 H (74-99) mg/dL Alkaline Phosphatase 139 H (38-126) U/L Troponin I (0.000-0.034) ng/mL Ur Specific [place] (1.001-1.035) Urine Ketones (Negative) Ur Leukocyte Esterase (Negative) Urine WBC (0-5) /hpf 11/29/23 11/29/23 11/29/23 Range/Units 09:34 16:30 17:24 Hgb (11.4-16.0) gm/dL MCHC (31.0-37.0) g/dL APTT >200.0 H* (22.0-30.0) sec D-Dimer (<0.60) mg/L FEU Chloride (98-107) mmol/L Carbon Dioxide (22-30) mmol/L Glucose (74-99) mg/dL Alkaline Phosphatase (38-126) U/L Troponin I 0.054 H* (0.000-0.034) ng/mL Ur Specific [place] 1.050 H (1.001-1.035) Urine Ketones Trace H (Negative) Ur Leukocyte Esterase Large H (Negative) Urine WBC 6 H (0-5) /hpf 11/30/23 11/30/23 11/30/23 Range/Units 00:03 03:15 03:15 Hgb 11.2 L (11.4-16.0) gm/dL MCHC (31.0-37.0) g/dL APTT 85.9 H (22.0-30.0) sec D-Dimer (<0.60) mg/L FEU Chloride 110 H (98-107) mmol/L Carbon Dioxide 21 L (22-30) mmol/L Glucose (74-99) mg/dL Alkaline Phosphatase (38-126) U/L Troponin I (0.000-0.034) ng/mL Ur Specific [place] (1.001-1.035) Urine Ketones (Negative) Ur Leukocyte Esterase (Negative) Urine WBC (0-5) /hpf Diabetes panel 11/29/23 11/30/23 Range/Units 09:34 03:15 Sodium 140 139 (137-145) mmol/L Potassium 3.7 3.7 (3.5-5.1) mmol/L Chloride 109 H 110 H (98-107) mmol/L Carbon Dioxide 20 L 21 L (22-30) mmol/L BUN 17 14 (7-17) mg/dL Creatinine 0.87 0.86 (0.52-1.04) mg/dL Glucose 147 H 90 (74-99) mg/dL Calcium 9.6 9.5 (8.4-10.2) mg/dL AST 25 (14-36) U/L ALT 16 (4-34) U/L Alkaline Phosphatase 139 H (38-126) U/L Total Protein 6.9 (6.3-8.2) g/dL Albumin 4.2 (3.5-5.0) g/dL Calcium panel 11/29/23 11/30/23 Range/Units 09:34 03:15 Calcium 9.6 9.5 (8.4-10.2) mg/dL Albumin 4.2 (3.5-5.0) g/dL Pituitary panel 11/29/23 11/30/23 Range/Units 09:34 03:15 Sodium 140 139 (137-145) mmol/L Potassium 3.7 3.7 (3.5-5.1) mmol/L Chloride 109 H 110 H (98-107) mmol/L Carbon Dioxide 20 L 21 L (22-30) mmol/L BUN 17 14 (7-17) mg/dL Creatinine 0.87 0.86 (0.52-1.04) mg/dL Glucose 147 H 90 (74-99) mg/dL Calcium 9.6 9.5 (8.4-10.2) mg/dL Adrenal panel 11/29/23 11/30/23 Range/Units 09:34 03:15 Sodium 140 139 (137-145) mmol/L Potassium 3.7 3.7 (3.5-5.1) mmol/L Chloride 109 H 110 H (98-107) mmol/L Carbon Dioxide 20 L 21 L (22-30) mmol/L BUN 17 14 (7-17) mg/dL Creatinine 0.87 0.86 (0.52-1.04) mg/dL Glucose 147 H 90 (74-99) mg/dL Calcium 9.6 9.5 (8.4-10.2) mg/dL Total Bilirubin 0.7 (0.2-1.3) mg/dL AST 25 (14-36) U/L ALT 16 (4-34) U/L Alkaline Phosphatase 139 H (38-126) U/L Total Protein 6.9 (6.3-8.2) g/dL Albumin 4.2 (3.5-5.0) g/dL - Imaging Comments: CT angiogram chest reports large filling defect within the left proximal pulmonary arterial branch. Smaller right upper lobe branch pulmonary emboli are present. There are multiple large pulmonary lower lung friend. No right heart strain is evident. Report was called to emergency room at the time of the interpretation. CT angiogram independently reviewed by Dr. Gimenez with evidence of right heart strain. Venous duplex negative for DVT bilateral lower extremities Assessment and Plan Assessment: 1. Bilateral pulmonary emboli 2. Shortness of breath Plan: 1. Continue on heparin drip 2. Await echocardiogram results 3. N.p.o. after midnight 4. Recommend considering outpatient hematology consultation 5. Will plan moving forward with EKOS tomorrow. Procedure discussed with both patient and who was at the bedside including risks and benefits. Patient is agreeable to proceed. Thank you for this consultation, we will continue to follow. The impression and plan of care has been dictated as directed. Dr. Gimenez I performed a history and examination of this patient, discussed the same with the dictator. I agree with the dictator's note ,documented as a scribe. Any additional findings or plans will be noted.
--- NOTE | 2023-11-30 12:51 | CA ---
Transthoracic Echo Report Name: Margret Figueroa Age: 73 Gender: F : 1950 Exam Date: 11/30/2023 10:00 Exam Location: [facility] Ht (in): 60 Wt (lb): 175 Ordering Physician: Mauricio Wild Attending/Referring Phys: [id number], Torri Order Selector Liya Michelle RDCS Procedure CPT: Indications: PE assess for right heart strain Cardiac Hx: Technical Quality: Fair Contrast 1: Definity Total Dose (mL): 2 Contrast 2: Total Dose (mL): MEASUREMENTS (Male / Female) Normal Values 2D ECHO LV Diastolic Diameter PLAX 3.4 cm 4.2 - 5.9 / 3.9 - 5.3 cm LV Systolic Diameter PLAX 1.5 cm IVS Diastolic Thickness 1.4 cm 0.6 - 1.0 / 0.6 - 0.9 cm LVPW Diastolic Thickness 1.4 cm 0.6 - 1.0 / 0.6 - 0.9 cm LV Relative Wall Thickness 0.8 RV Internal Dim ED PLAX 4.3 cm LA Volume 26.2 cm??? 18 - 58 / 22 - 52 cm??? LA Volume Index 14.0 cm???/m??? 16 - 28 cm???/m??? M-MODE Aortic Root Diameter MM 3.1 cm LA Systolic Diameter MM 3.9 cm LA Ao Ratio MM 1.3 AV Cusp Separation MM 1.8 cm DOPPLER AV Peak Velocity 183.1 cm/s AV Peak Gradient 13.4 mmHg AV Mean Velocity 122.9 cm/s AV Mean Gradient 7.0 mmHg AV Velocity Time Integral 39.3 cm LVOT Peak Velocity 57.8 cm/s LVOT Peak Gradient 1.3 mmHg LVOT Velocity Time Integral 29.8 cm MV Area PHT 3.0 cm??? Mitral E Point Velocity 66.7 cm/s Mitral A Point Velocity 101.3 cm/s Mitral E to A Ratio 0.7 MV Deceleration Time 251.4 ms TR Peak Velocity 325.4 cm/s TR Peak Gradient 42.3 mmHg Right Ventricular Systolic Press 60.1 mmHg FINDINGS Left Ventricle Moderately increased left ventricular wall thickness. Left ventricular cavity size normal. Normal left ventricular systolic function. No obvious regional wall motion abnormalities. Left ventricular ejection fraction is estimated at 55-60 %. Grade 1 diastolic dysfunction. Right Ventricle Severe right ventricular dilatation. Hypokinetic right ventricular free wall. Hypokinetic right ventricular apex. Severe pulmonary hypertension. Right ventricular systolic pressure estimated at 60 mm hg. Right heart strain noted. Right Atrium Right atrial dilatation. Left Atrium Normal left atrial size. Mitral Valve Structurally normal mitral valve. No mitral stenosis, regurgitation or prolapse. Aortic Valve Trileaflet aortic valve. No aortic valve stenosis or regurgitation. Tricuspid Valve Structurally normal tricuspid valve. [id number] tricuspid regurgitation. Pulmonic Valve Structurally normal pulmonic valve. Trace pulmonic regurgitation. Pericardium No pericardial effusion. Aorta Normal size aortic root and proximal ascending aorta. CONCLUSIONS Left ventricular ejection fraction is estimated at 55-60 %. Grade 1 diastolic dysfunction. Moderate LVH No obvious regional wall motion abnormalities. Dilated RV with reduced systolic function. Hightower's sign present, suggest RV strain Moderate TR, RVSP 60 mmHg Previewed by: Dr Fermin Ford (Electronically Signed) Final Date: 30 Nov 2023 12:50
--- NOTE | 2023-11-30 14:28 | P.PN ---
Subjective Progress Note Date: 11/30/23 Principal diagnosis: Acute bilateral pulmonary embolism This is a very pleasant 73-year-old female patient with a known history of bladder cancer postsurgery in 2017, hypertension, hypothyroidism, hyperlipidemia, left lower extremity phlebitis, arthritis. Over the past 2 weeks she has been having progressive shortness of breath with less and less activity tolerance. She had been seen by her PCP last week and EKG revealed no acute changes. She was then seen by cardiology and a stress test was scheduled for tomorrow. Her shortness of breath was worse today she presented here to the ER instead. Chest x-ray revealed no acute pulmonary process. CT angiogram revealed multiple large central pulmonary emboli within the first branches. She was initiated on heparin drip. She is seen today in consultation in the emergency department. She is currently resting fairly comfortably on the stretcher. No worsening shortness of breath cough or congestion. No hemoptysis. No chest pain or palpitations. She denied any injury to the lower extremities. Dopplers were negative for DVT. No long travels. No active cancer. No history of previous PE. No family history. White count 8.2. Hemoglobin 11.0. Platelets 253. D-dimer was 4.80. Sodium 140. Potassium 3.7. Bicarb 20. BUN 17. Creatinine 0.87. Glucose 147. Troponin 0.054. proBNP 2990. She is requiring 4 L of oxygen to maintain O2 saturation in the 90s. She has been afebrile. Hemodynamically stable. Echocardiogram pending. Patient with evaluated today on 11/30/2023, patient remains in the ER, and we saw this patient yesterday on consultation, recommended an urgent echocardiogram, also recommended an urgent vascular surgery consult, so far the patient has not had her echocardiogram as early as this morning, and a decision will have to be made whether the patient would benefit from EKOS thrombolysis or thrombectomy. This is to be decided upon today by vascular surgery and after reviewing the results of her echocardiogram. Considering the pulmonary embolism load, I believe the patient will most likely have some right ventricular strain. Although clinically the patient is doing well, and she is hemodynamically stable. Her PTT is therapeutic Objective - Vital Signs Vital signs: Vital Signs Temp 98.2 F 11/30/23 06:51 Pulse 62 11/30/23 13:12 Resp 20 05/29/24 13:12 BP 118/54 11/30/23 13:12 Pulse Ox 95 11/30/23 13:12 FiO2 Intake & Output 11/29/23 11/30/23 11/30/23 18:59 06:59 18:59 Intake Total 99.302 56.676 94.298 Output Total 220 Balance 99.302 -163.324 94.298 Weight 79.379 kg Intake: Intake, IV Titration 99.302 56.676 94.298 Amount Heparin Sod,Pork in 0.45% 99.302 56.676 94.298 NaCl 25,000 unit In 0.45 % NaCl 1 250ml.bag @ 18 UNITS/KG/HR 14.288 mls/hr IV .[id number] [facility] Rx#: [id number] Output: Urine 220 - Exam General: The patient is awake and alert, in no distress, and does not appear acutely ill. On 2 L nasal cannula Skin: Skin is warm and dry and no rashes or lesions are noted. Eye: Pupils are equal, round and reactive to light, extra-ocular movements are intact; there is normal conjunctiva bilaterally. Ears, nose, mouth and throat: There are moist mucous membranes and no oral lesions. Neck: The neck is supple, there is no tenderness or JVD. Cardiovascular: There is a regular rate and rhythm. No murmur, rub or gallop is appreciated. Respiratory: Clear bilaterally no crackles rhonchi or wheezes Gastrointestinal: Soft, non-distended, non-tender abdomen without masses or organomegaly noted. There is no rebound or guarding present. Bowel sounds are unremarkable. Back: There is no tenderness to palpation in the midline. There is no obvious deformity. Musculoskeletal: Normal ROM, no tenderness, There is no pedal edema. There is no calf tenderness or swelling. No cords were appreciated. Neurological: CN II-XII intact, Cranial nerves III through XII are intact. There are no obvious motor or sensory deficits. Coordination appears grossly intact. Speech is normal. Psychiatric: Cooperative, appropriate mood & affect, normal judgment. - Labs CBC & Chem 7: 11/30/23 03:15 11/30/23 03:15 Labs: Abnormal Lab Results - Last 24 Hours (Table) 11/29/23 11/29/23 11/30/23 Range/Units 16:30 17:24 00:03 Hgb (11.4-16.0) gm/dL APTT >200.0 H* 85.9 H (22.0-30.0) sec Chloride (98-107) mmol/L Carbon Dioxide (22-30) mmol/L Ur Specific [place] 1.050 H (1.001-1.035) Urine Ketones Trace H (Negative) Ur Leukocyte Esterase Large H (Negative) Urine WBC 6 H (0-5) /hpf 11/30/23 11/30/23 11/30/23 Range/Units 03:15 03:15 07:51 Hgb 11.2 L (11.4-16.0) gm/dL APTT 74.0 H (22.0-30.0) sec Chloride 110 H (98-107) mmol/L Carbon Dioxide 21 L (22-30) mmol/L Ur Specific [place] (1.001-1.035) Urine Ketones (Negative) Ur Leukocyte Esterase (Negative) Urine WBC (0-5) /hpf Assessment and Plan Assessment: Impression: Acute hypoxemic respiratory failure secondary to acute multiple large central pulmonary emboli. Pulmonary emboli are unprovoked hence the patient will need to be on anticoagulation therapy/lifetime Hypertension Hyperlipidemia Hypothyroidism History of bladder cancer, surgically removed in 2017 History of arthritis History of phlebitis of the left lower extremity Recommendation: Continue heparin, as per protocol Vascular surgery to see on consultation [facility] Echocardiogram pending Adjust heparin dosing as per PTT for now. Titrate FiO2 accordingly Will continue to follow Time with Patient: Less than 30
[2023-11-30 16:13] LABS: Glucose,Whole Blood 149 mg/dL (70-110)
--- NOTE | 2023-11-30 21:00 | PN ---
PROGRESS NOTE DATE OF SERVICE: 11/30/2023 SUBJECTIVE: This 73-year-old woman was admitted with shortness of breath, bilateral pulmonary embolism, is closely monitored at this time and 2D echo with Doppler showed severe right ventricular dilatation and hypokinetic right ventricular free wall indicating right heart strain. Vascular surgery seeing the patient for possible intervention. No chest pain, no palpitations. PAST MEDICAL HISTORY: Reviewed. REVIEW OF SYSTEMS: A 14-point review is negative except as mentioned earlier. CURRENT MEDICATIONS: Reviewed include IV heparin, dose and rest of medications noted. PHYSICAL EXAMINATION: VITAL SIGNS: Pulse is 58, blood pressure 107/80, respirations 17. HEENT: Conjunctivae normal. NECK: No jugular venous distention. RESPIRATIONS: Diminished at the bases, scattered rhonchi. ABDOMEN: Soft, nontender. LEGS: No edema, no swelling. NERVOUS SYSTEM: Nonfocal. LABS: ABGs noted, otherwise UA noted. ASSESSMENT: 1. Acute bilateral pulmonary embolism with right ventricular strain. 2. Elevated D-dimer. 3. Troponin 0.05, indeterminate, possibly secondary to pulmonary embolism. 4. Hypertension. 5. History of cardiac catheterization. RECOMMENDATIONS: Recommended to continue current management, continue symptomatic treatment, otherwise continue with IV heparin. Vascular surgery is evaluating the patient. Repeat labs. The patient will be transferred to ICU. Continue to monitor. Prognosis guarded. Further recommendations to follow. MMASHLEYL / PHYLLISN: [id number] /
[2023-12-01 07:27] LABS: Basophils % (A) 0 %; Eosinophils # (A) 0.1 k/uL (0-0.7); Eosinophils % (A) 2 %; HCT 37.4 % (34.0-46.0); HGB 11.6 gm/dL (11.4-16.0); Hypochromasia Slight; Lymphocytes # (A) 1.8 k/uL (1.0-4.8); Lymphocytes % (A) 28 %; MCH 26.7 pg (25.0-35.0); MCHC 30.9 g/dL (31.0-37.0); MCV 86.3 fL (80.0-100.0); Mean Platelet Volume 9.1; Monocytes # (A) 0.4 k/uL (0-1.0); Monocytes % (A) 7 %; Neutrophils % (A) 61 %; Platelet Count 231 k/uL (150-450); RBC 4.33 m/uL (3.80-5.40); RDW 13.9 % (11.5-15.5); WBC 6.5 k/uL (3.8-10.6)
[2023-12-01 07:51] LABS: African American GFR (CKD) 85 (>60 ml/min/1.73 sqM); Anion Gap 5 mmol/L; Blood Urea Nitrogen 16 mg/dL (7-17); Calcium 9.1 mg/dL (8.4-10.2); Carbon Dioxide 25 mmol/L (22-30); Chloride 106 mmol/L (98-107); Glucose 108 mg/dL (74-99); Non-African American GFR(CKD) 74 (>60 ml/min/1.73 sqM); Potassium 3.9 mmol/L (3.5-5.1); Sodium 136 mmol/L (137-145)
[2023-12-01] MEDS ORDERED: fentaNYL (PF) 50 MCG/ML 2 ML AMP ONE (09:50)
[2023-12-01] MEDS ORDERED: LIDOCAINE 1% INJ 10MG/ML (20 ML MDV) ONE (09:50)
[2023-12-01] MEDS: LIDOCAINE 1% INJ 10MG/ML (20 ML MDV) SQ ONE (10:01)
[2023-12-01] MEDS: MIDAZOLAM 2 MG/2 ML VIAL IVP ONE (10:02)
[2023-12-01] MEDS: fentaNYL (PF) 50 MCG/ML 2 ML AMP IVP ONE (10:02)
[2023-12-01] MEDS: SODIUM CHLORIDE 0.9% 500 ML 500 ML IV ONE (10:02)
--- NOTE | 2023-12-01 10:57 | IR ---
EXAMINATION TYPE: IR transcath embolizat therapy DATE OF EXAM: 12/01/2023 COMPARISON: NONE HISTORY: Fluoroscopy time. Fluoroscopy was provided to the referring clinician.
--- NOTE | 2023-12-01 11:06 | P.OP ---
Date of Procedure: 12/01/23 Description of Procedure: Preoperative diagnosis: Submassive bilateral pulmonary emboli Postoperative diagnosis: Same Procedure: #1 ultrasound-guided right common femoral vein access of central venous catheters x2 #2 bilateral selective pulmonary angiogram #3 Initiation of pulmonary pharmacal mechanical thrombolysis with EKOS #4 Moderate conscious sedation x 31 minutes Surgeon: Luna Gimenez D.O. EBL: Less than 10 mL IV fluids: See records Urine output: See records Drains: None Complications: None immediately apparent Condition: Stable to ICU Operative indication and findings: Patient is a 73-year-old female who was found to have a submassive bilateral pulmonary embolism on workup and evaluation and was offered EKOS thrombolysis. Risks and benefits were discussed. Questions were answered. Procedure in detail: The patient was taken to the radiology suite and placed in supine position. Bilateral groins are prepped and draped in usual sterile fashion. A preprocedure timeout was performed, all parties were in agreement. The right common femoral vein was identified and found to be compressible without any evidence of visible thrombus. The skin overlying was anesthetized 1% lidocaine plain. A multipurpose needle was used and the vein was accessed and a wire was placed. This was done again through a separate access site. 2, 6-[place]ones[place] sheaths were placed. Using catheters and wires the right and left pulmonary arteries were accessed. Pulmonic angiograms were performed confirming positioning. An EKOS ultrasonic pharmacomechanical infusion catheter was placed and confirmed appropriate positioning within the pulmonary arteries. The catheters were hooked up to appropriate fluid infusions for the optelyse protocol for submassive pulmonary emboli. The sheaths were sutured in place. Dressing was placed. The patient was transferred back to ICU in stable condition having tolerated the procedure well.
[2023-12-01 12:28] LABS: Basophils % (A) 0 %; Eosinophils # (A) 0.1 k/uL (0-0.7); Eosinophils % (A) 1 %; HCT 37.7 % (34.0-46.0); HGB 11.4 gm/dL (11.4-16.0); Hypochromasia Moderate; Lymphocytes # (A) 1.2 k/uL (1.0-4.8); Lymphocytes % (A) 15 %; MCH 26.6 pg (25.0-35.0); MCHC 30.3 g/dL (31.0-37.0); MCV 87.7 fL (80.0-100.0); Mean Platelet Volume 8.4; Monocytes # (A) 0.3 k/uL (0-1.0); Monocytes % (A) 4 %; Neutrophils % (A) 78 %; Platelet Count 230 k/uL (150-450); RBC 4.29 m/uL (3.80-5.40); RDW 13.9 % (11.5-15.5); WBC 7.7 k/uL (3.8-10.6)
[2023-12-01] MEDS: SODIUM CHLORIDE 0.9% 1,000 ML IV SCH ×2 (12:34→12:35)
[2023-12-01] MEDS: HEPARIN SOD,PORK IN 0.45% NACL 25,000 UNIT in 0.45% NACL 1 250ML.BAG IV SCH ×2 (12:35→12:37)
[2023-12-01] MEDS: ALTEPLASE 6 MG in SODIUM CHLORIDE 0.9% 144 ML IV ONE (12:35)
[2023-12-01] MEDS: ALTEPLASE 2 MG VIAL (CATHFLO) IV STA (14:20)
--- NOTE | 2023-12-01 16:38 | P.PN ---
Progress Note - Text Progress Note Date: 12/01/23 Patient seen and examined. Overall feeling better. Decreased shortness of breath. No acute distress resting comfortably. Catheters are removed Without issue. sheaths will be removed with manual pressure. Flat x 2 hours. Initiate oral anticoagulation today
[2023-12-01] MEDS: Apixaban Initiation Dose--VTE 5 MG TAB PO SCH (17:08)
--- NOTE | 2023-12-01 17:13 | P.PN ---
Subjective Progress Note Date: 12/01/23 Principal diagnosis: Acute bilateral pulmonary embolism This is a very pleasant 73-year-old female patient with a known history of bladder cancer postsurgery in 2017, hypertension, hypothyroidism, hyperlipidemia, left lower extremity phlebitis, arthritis. Over the past 2 weeks she has been having progressive shortness of breath with less and less activity tolerance. She had been seen by her PCP last week and EKG revealed no acute changes. She was then seen by cardiology and a stress test was scheduled for tomorrow. Her shortness of breath was worse today she presented here to the ER instead. Chest x-ray revealed no acute pulmonary process. CT angiogram revealed multiple large central pulmonary emboli within the first branches. She was initiated on heparin drip. She is seen today in consultation in the emergency department. She is currently resting fairly comfortably on the stretcher. No worsening shortness of breath cough or congestion. No hemoptysis. No chest pain or palpitations. She denied any injury to the lower extremities. Dopplers were negative for DVT. No long travels. No active cancer. No history of previous PE. No family history. White count 8.2. Hemoglobin 11.0. Platelets 253. D-dimer was 4.80. Sodium 140. Potassium 3.7. Bicarb 20. BUN 17. Creatinine 0.87. Glucose 147. Troponin 0.054. proBNP 2990. She is requiring 4 L of oxygen to maintain O2 saturation in the 90s. She has been afebrile. Hemodynamically stable. Echocardiogram pending. Patient with evaluated today on 11/30/2023, patient remains in the ER, and we saw this patient yesterday on consultation, recommended an urgent echocardiogram, also recommended an urgent vascular surgery consult, so far the patient has not had her echocardiogram as early as this morning, and a decision will have to be made whether the patient would benefit from EKOS thrombolysis or thrombectomy. This is to be decided upon today by vascular surgery and after reviewing the results of her echocardiogram. Considering the pulmonary embolism load, I believe the patient will most likely have some right ventricular strain. Although clinically the patient is doing well, and she is hemodynamically stable. Her PTT is therapeutic Patient was reevaluated today on 12/01/23, patient underwent EKOS thrombolysis today done by Dr. Gimenez. Patient did very well, she had a very uneventful postoperative and perioperative course. She is now in the ICU, asymptomatic, doing quite well. Patient is on room air, O2 saturation 93%, hemodynamically stable, blood pressure is 122/63, temp is 98 1. Heart rate is 81. Again the patient has no active pulmonary symptoms. Her thrombolytic catheter has been removed. Patient will be started on Eliquis CBC today is relatively normal hemoglobin is 11.4 platelets are 230.Normal normal basic metabolic profile and renal profile are normal Objective - Vital Signs Vital signs: Vital Signs Temp 98.1 F 12/01/23 16:00 Pulse 61 12/01/23 16:00 Resp 23 12/01/23 16:00 BP 122/63 12/01/23 16:00 Pulse Ox 93 L 12/01/23 16:00 FiO2 Intake & Output 11/30/23 12/01/23 12/01/23 18:59 06:59 18:59 Intake Total 694.298 625 Output Total 50 0 Balance 694.298 -50 625 Weight 79.379 kg 79 kg Intake: IV 625 Alteplase 6 mg In Sodium 250 Chloride 0.9% 144 ml @ 1 MG/HR 25 mls/hr IV .Q6H [facility] Rx#:[id number] Heparin Sod,Pork in 0.45% 25 NaCl 25,000 unit In 0.45 % NaCl 1 250ml.bag @ 2.5 mls/hr IV .Q24H [facility] Rx#: [id number] Sodium Chloride 0.9% 1, 350 000 ml @ 35 mls/hr IV . Q24H [facility] Rx#:[id number] Intake, IV Titration 94.298 Amount Heparin Sod,Pork in 0.45% 94.298 NaCl 25,000 unit In 0.45 % NaCl 1 250ml.bag @ 18 UNITS/KG/HR 14.288 mls/hr IV .[id number] [facility] Rx#: [id number] Oral 600 Output: Urine 50 0 Other: Voiding Method External Catheter External Catheter # Voids 1 - Exam General: The patient is awake and alert, in no distress, and does not appear acutely ill. Room air Skin: Skin is warm and dry and no rashes or lesions are noted. Eye: Pupils are equal, round and reactive to light, extra-ocular movements are intact; there is normal conjunctiva bilaterally. Ears, nose, mouth and throat: There are moist mucous membranes and no oral lesions. Neck: The neck is supple, there is no tenderness or JVD. Cardiovascular: There is a regular rate and rhythm. No murmur, rub or gallop is appreciated. Respiratory: Clear bilaterally no crackles rhonchi or wheezes Gastrointestinal: Soft, non-distended, non-tender abdomen without masses or organomegaly noted. There is no rebound or guarding present. Bowel sounds are unremarkable. Back: There is no tenderness to palpation in the midline. There is no obvious deformity. Musculoskeletal: Normal ROM, no tenderness, There is no pedal edema. There is no calf tenderness or swelling. No cords were appreciated. Neurological: CN II-XII intact, Cranial nerves III through XII are intact. There are no obvious motor or sensory deficits. Coordination appears grossly intact. Speech is normal. Psychiatric: Cooperative, appropriate mood & affect, normal judgment. - Labs CBC & Chem 7: 12/01/23 12:11 12/01/23 06:39 Labs: Abnormal Lab Results - Last 24 Hours (Table) 12/01/23 12/01/23 12/01/23 Range/Units 06:39 06:39 06:39 MCHC 30.9 L (31.0-37.0) g/dL APTT 58.2 H (22.0-30.0) sec Sodium 136 L (137-145) mmol/L Glucose 108 H (74-99) mg/dL 12/01/23 Range/Units 12:11 MCHC 30.3 L (31.0-37.0) g/dL APTT (22.0-30.0) sec Sodium (137-145) mmol/L Glucose (74-99) mg/dL Assessment and Plan Assessment: Impression: Acute hypoxemic respiratory failure secondary to acute multiple large central pulmonary emboli. Pulmonary emboli are unprovoked hence the patient will need to be on anticoagulation therapy/lifetime Risk post EKOS thrombolysis postoperative day #0 Hypertension Hyperlipidemia Hypothyroidism History of bladder cancer, surgically removed in 2017 History of arthritis History of phlebitis of the left lower extremity Recommendation: Continue present supportive care measures Start patient on Eliquis Patient was made aware that she will need to be on Eliquis lifetime since she had unprovoked pulmonary embolism Vascular surgery to see on consultation VICENTA Titrate FiO2 accordingly presently patient is on room air Will monitor in the ICU overnight, consider discharge planning in the next 24 hours. Will continue to follow Time with Patient: Less than 30
[2023-12-01 17:44] LABS: Basophils % (A) 1 %; Eosinophils # (A) 0.1 k/uL (0-0.7); Eosinophils % (A) 1 %; HCT 37.2 % (34.0-46.0); HGB 11.8 gm/dL (11.4-16.0); Hypochromasia Slight; Lymphocytes # (A) 1.4 k/uL (1.0-4.8); Lymphocytes % (A) 19 %; MCH 27.1 pg (25.0-35.0); MCHC 31.6 g/dL (31.0-37.0); MCV 85.8 fL (80.0-100.0); Monocytes # (A) 0.3 k/uL (0-1.0); Monocytes % (A) 4 %; Neutrophils # (A) 5.6 k/uL (1.3-7.7); Neutrophils % (A) 75 %; Platelet Count 220 k/uL (150-450); RBC 4.34 m/uL (3.80-5.40); RDW 13.7 % (11.5-15.5); WBC 7.6 k/uL (3.8-10.6)
--- NOTE | 2023-12-02 01:45 | PN ---
PROGRESS NOTE DATE OF SERVICE: 12/01/2023 SUBJECTIVE: This is a 73-year-old woman, who was admitted with bilateral submassive pulmonary embolism with right ventricular strain, underwent EKOS procedure with pharmacomechanical thrombolysis with bilateral selective pulmonary angiography by Dr. Gimenez. The patient is being closely monitored in ICU at this time. There is no history of any fever, rigors, or chills. PAST MEDICAL HISTORY: Reviewed. REVIEW OF SYSTEMS: A 14-point review of systems is negative except as mentioned earlier. CURRENT MEDICATIONS: Reviewed include Eliquis. PHYSICAL EXAMINATION: VITAL SIGNS: Pulse is 70, blood pressure 118/64, respirations 19. HEENT: Conjunctivae normal. NECK: No JVD. CARDIOVASCULAR: S1, S2. RESPIRATIONS: Breath sounds diminished at the bases. Scattered rhonchi. ABDOMEN: Soft. NERVOUS SYSTEM: Nonfocal. LABORATORY DATA: Reviewed. ASSESSMENT: 1. Bilateral submassive pulmonary embolism, status post EKOS, and pharmacomechanical thrombolysis. 2. Right ventricular strain at the 2D echo. 3. Elevated D-dimer. 4. Troponin 0.05, indeterminate, possibly secondary to pulmonary embolus. 5. Hypertension. 6. History of cardiac catheterization. RECOMMENDATIONS: Recommend to continue current management. Continue symptomatic treatment. Continue with Alteplase per Vascular Surgery, followed by apixaban. Otherwise, continue to monitor repeat labs. Monitor closely. Guarded prognosis. Further recommendations to follow. MMASHLEYL / PHYLLISN: [id number] /
[2023-12-02 01:49] LABS: Basophils % (A) 1 %; Eosinophils # (A) 0.2 k/uL (0-0.7); Eosinophils % (A) 3 %; HCT 35.1 % (34.0-46.0); HGB 10.8 gm/dL (11.4-16.0); Hypochromasia Slight; Lymphocytes # (A) 1.6 k/uL (1.0-4.8); Lymphocytes % (A) 28 %; MCH 26.4 pg (25.0-35.0); MCHC 30.8 g/dL (31.0-37.0); MCV 85.8 fL (80.0-100.0); Mean Platelet Volume 8.6; Monocytes # (A) 0.3 k/uL (0-1.0); Monocytes % (A) 6 %; Neutrophils # (A) 3.5 k/uL (1.3-7.7); Neutrophils % (A) 61 %; Platelet Count 212 k/uL (150-450); RBC 4.09 m/uL (3.80-5.40); RDW 13.9 % (11.5-15.5); WBC 5.8 k/uL (3.8-10.6)
[2023-12-02 06:10] LABS: Basophils % (A) 1 %; Eosinophils # (A) 0.2 k/uL (0-0.7); Eosinophils % (A) 3 %; HCT 36.2 % (34.0-46.0); HGB 11.2 gm/dL (11.4-16.0); Hypochromasia Slight; Lymphocytes # (A) 1.3 k/uL (1.0-4.8); Lymphocytes % (A) 25 %; MCH 26.8 pg (25.0-35.0); MCV 86.5 fL (80.0-100.0); Monocytes # (A) 0.4 k/uL (0-1.0); Monocytes % (A) 7 %; Neutrophils # (A) 3.3 k/uL (1.3-7.7); Neutrophils % (A) 63 %; Platelet Count 219 k/uL (150-450); RBC 4.18 m/uL (3.80-5.40); RDW 13.9 % (11.5-15.5); WBC 5.2 k/uL (3.8-10.6)
[2023-12-02 06:25] LABS: African American GFR (CKD) 85 (>60 ml/min/1.73 sqM); Anion Gap 4 mmol/L; Blood Urea Nitrogen 13 mg/dL (7-17); Calcium 9.1 mg/dL (8.4-10.2); Carbon Dioxide 22 mmol/L (22-30); Chloride 112 mmol/L (98-107); Glucose 104 mg/dL (74-99); Non-African American GFR(CKD) 74 (>60 ml/min/1.73 sqM); Potassium 4.2 mmol/L (3.5-5.1); Sodium 138 mmol/L (137-145)
[2023-12-02 08:49] VITALS: TEMP 97.8
[2023-12-02 09:42] VITALS: BP 121/57
--- NOTE | 2023-12-02 09:57 | P.PN ---
Subjective Progress Note Date: 12/02/23 Principal diagnosis: Submassive bilateral pulmonary emboli Patient is seen and examined today as a follow-up. She remains in the ICU as overflow. She is status post day #1 for thrombolysis with EKOS. Patient states she is feeling much better. She is up and had a shower this morning. She states no shortness of breath with ambulating. Her oxygen saturation has been 9596% on room air. Denies any bleeding from right groin. At this time denies any shortness of breath or chest pain, no abdominal pain, nausea or vomiting. Objective - Vital Signs Vital signs: Vital Signs Temp 97.8 F 12/02/23 08:00 Pulse 69 12/02/23 08:00 Resp 15 12/02/23 08:00 BP 115/58 12/02/23 08:00 Pulse Ox 96 12/02/23 08:00 FiO2 Intake & Output 12/01/23 12/02/23 12/02/23 18:59 06:59 18:59 Intake Total 1125 400 100 Output Total 0 250 0 Balance 1125 150 100 Intake: IV 625 Alteplase 6 mg In Sodium 250 Chloride 0.9% 144 ml @ 1 MG/HR 25 mls/hr IV .Q6H [facility] Rx#:[id number] Heparin Sod,Pork in 0.45% 25 NaCl 25,000 unit In 0.45 % NaCl 1 250ml.bag @ 2.5 mls/hr IV .Q24H [facility] Rx#: [id number] Sodium Chloride 0.9% 1, 350 000 ml @ 35 mls/hr IV . Q24H [facility] Rx#:[id number] Oral 500 400 100 Output: Urine 0 250 0 Other: Voiding Method External Catheter External Catheter Toilet # Voids 1 1 # Bowel Movements 0 - Exam General appearance: The patient is alert, oriented, appears in no acute distress. HET: Head is normocephalic and atraumatic. Pupils are equal and reactive. Neck: Supple. Heart: Regular. Lungs: Equal expansion, normal respiratory effort. Abdomen: Soft, nontender, nondistended. Extremities: Normal skin color and turgor. Right groin access site without any bleeding, bruising or hematoma. Neurological: No focal deficits. Strength and sensation are grossly intact. - Labs CBC & Chem 7: 12/02/23 05:54 12/02/23 05:54 Labs: Abnormal Lab Results - Last 24 Hours (Table) 12/01/23 12/02/23 12/02/23 Range/Units 12:11 00:51 05:54 Hgb 10.8 L 11.2 L (11.4-16.0) gm/dL MCHC 30.3 L 30.8 L (31.0-37.0) g/dL Chloride (98-107) mmol/L Glucose (74-99) mg/dL 12/02/23 Range/Units 05:54 Hgb (11.4-16.0) gm/dL MCHC (31.0-37.0) g/dL Chloride 112 H (98-107) mmol/L Glucose 104 H (74-99) mg/dL Assessment and Plan Assessment: 1. Submassive bilateral pulmonary emboli with right heart strain 2. Status post pulmonary pharmacomechanical thrombolysis with EKOS 3. Shortness of breath, improved Plan: 1. Patient transitioned to Eliquis VTE initiation dosing 2. Continue heart healthy diet 3. Patient is cleared for discharge from vascular surgery. Discharge instructions reviewed with patient. 4. Follow-up with vascular surgery in 2 weeks, at that time we will discuss further outpatient hematology consultation Thank you for this consultation, we will sign off at this time. The impression and plan of care has been dictated as directed. Dr. Gimenez I performed a history and examination of this patient, discussed the same with the dictator. I agree with the dictator's note ,documented as a scribe. Any additional findings or plans will be noted.
[2023-12-02 11:30] VITALS: PULSE 58
[2023-12-02 11:31] VITALS: RESP 25
--- NOTE | 2023-12-02 13:29 | P.PN ---
Subjective Progress Note Date: 12/02/23 Principal diagnosis: Acute bilateral pulmonary embolism This is a very pleasant 73-year-old female patient with a known history of bladder cancer postsurgery in 2017, hypertension, hypothyroidism, hyperlipidemia, left lower extremity phlebitis, arthritis. Over the past 2 weeks she has been having progressive shortness of breath with less and less activity tolerance. She had been seen by her PCP last week and EKG revealed no acute changes. She was then seen by cardiology and a stress test was scheduled for tomorrow. Her shortness of breath was worse today she presented here to the ER instead. Chest x-ray revealed no acute pulmonary process. CT angiogram revealed multiple large central pulmonary emboli within the first branches. She was initiated on heparin drip. She is seen today in consultation in the emergency department. She is currently resting fairly comfortably on the stretcher. No worsening shortness of breath cough or congestion. No hemoptysis. No chest pain or palpitations. She denied any injury to the lower extremities. Dopplers were negative for DVT. No long travels. No active cancer. No history of previous PE. No family history. White count 8.2. Hemoglobin 11.0. Platelets 253. D-dimer was 4.80. Sodium 140. Potassium 3.7. Bicarb 20. BUN 17. Creatinine 0.87. Glucose 147. Troponin 0.054. proBNP 2990. She is requiring 4 L of oxygen to maintain O2 saturation in the 90s. She has been afebrile. Hemodynamically stable. Echocardiogram pending. Patient with evaluated today on 11/30/2023, patient remains in the ER, and we saw this patient yesterday on consultation, recommended an urgent echocardiogram, also recommended an urgent vascular surgery consult, so far the patient has not had her echocardiogram as early as this morning, and a decision will have to be made whether the patient would benefit from EKOS thrombolysis or thrombectomy. This is to be decided upon today by vascular surgery and after reviewing the results of her echocardiogram. Considering the pulmonary embolism load, I believe the patient will most likely have some right ventricular strain. Although clinically the patient is doing well, and she is hemodynamically stable. Her PTT is therapeutic Patient was reevaluated today on 12/01/23, patient underwent EKOS thrombolysis today done by Dr. Gimenez. Patient did very well, she had a very uneventful postoperative and perioperative course. She is now in the ICU, asymptomatic, doing quite well. Patient is on room air, O2 saturation 93%, hemodynamically stable, blood pressure is 122/63, temp is 98 1. Heart rate is 81. Again the patient has no active pulmonary symptoms. Her thrombolytic catheter has been removed. Patient will be started on Eliquis CBC today is relatively normal hemoglobin is 11.4 platelets are 230.Normal normal basic metabolic profile and renal profile are normal Patient was today on 12/02/2023, patient is status post EKOS thrombolysis done yesterday, remains in the ICU, doing great. Asymptomatic, she was already transitioned to Eliquis by vascular surgery, patient is hemodynamically stable, does not seem to be in any form of distress, and she is on room air, saturating well, no cough no wheezing no shortness of breath no chest pain, hence considering the patient was cleared for discharge by vascular surgery I will clear the patient to be discharged and to follow-up on outpatient basis. Objective - Vital Signs Vital signs: Vital Signs Temp 97.8 F 12/02/23 08:00 Pulse 58 L 12/02/23 11:00 Resp 25 H 12/02/23 11:00 BP 121/57 12/02/23 09:00 Pulse Ox 96 12/02/23 09:00 FiO2 Intake & Output 12/01/23 12/02/23 12/02/23 18:59 06:59 18:59 Intake Total 1125 400 450 Output Total 0 250 0 Balance 1125 150 450 Intake: IV 625 Alteplase 6 mg In Sodium 250 Chloride 0.9% 144 ml @ 1 MG/HR 25 mls/hr IV .Q6H [facility] Rx#:[id number] Heparin Sod,Pork in 0.45% 25 NaCl 25,000 unit In 0.45 % NaCl 1 250ml.bag @ 2.5 mls/hr IV .Q24H [facility] Rx#: [id number] Sodium Chloride 0.9% 1, 350 000 ml @ 35 mls/hr IV . Q24H [facility] Rx#:[id number] Oral 500 400 450 Output: Urine 0 250 0 Other: Voiding Method External Catheter External Catheter Toilet # Voids 1 1 1 # Bowel Movements 0 - Exam General: The patient is awake and alert, in no distress, and does not appear acutely ill. Room air Skin: Skin is warm and dry and no rashes or lesions are noted. Eye: Pupils are equal, round and reactive to light, extra-ocular movements are intact; there is normal conjunctiva bilaterally. Ears, nose, mouth and throat: There are moist mucous membranes and no oral lesions. Neck: The neck is supple, there is no tenderness or JVD. Cardiovascular: There is a regular rate and rhythm. No murmur, rub or gallop is appreciated. Respiratory: Clear bilaterally no crackles rhonchi or wheezes Gastrointestinal: Soft, non-distended, non-tender abdomen without masses or organomegaly noted. There is no rebound or guarding present. Bowel sounds are unremarkable. Back: There is no tenderness to palpation in the midline. There is no obvious deformity. Musculoskeletal: Normal ROM, no tenderness, There is no pedal edema. There is no calf tenderness or swelling. No cords were appreciated. Neurological: CN II-XII intact, Cranial nerves III through XII are intact. There are no obvious motor or sensory deficits. Coordination appears grossly intact. Speech is normal. Psychiatric: Cooperative, appropriate mood & affect, normal judgment. - Labs CBC & Chem 7: 12/02/23 05:54 12/02/23 05:54 Labs: Abnormal Lab Results - Last 24 Hours (Table) 12/02/23 12/02/23 12/02/23 Range/Units 00:51 05:54 05:54 Hgb 10.8 L 11.2 L (11.4-16.0) gm/dL MCHC 30.8 L (31.0-37.0) g/dL Chloride 112 H (98-107) mmol/L Glucose 104 H (74-99) mg/dL Assessment and Plan Assessment: Impression: Acute hypoxemic respiratory failure secondary to acute multiple large central pulmonary emboli. Pulmonary emboli are unprovoked hence the patient will need to be on anticoagulation therapy/lifetime Risk post EKOS thrombolysis postoperative day #1 Hypertension Hyperlipidemia Hypothyroidism History of bladder cancer, surgically removed in 2017 History of arthritis History of phlebitis of the left lower extremity Recommendation: Continue Eliquis and the patient should be on it lifetime therapy. Will clear for discharge if cleared by vascular surgery Patient to follow-up on outpatient basis in 1 to 2 weeks Will continue to follow Time with Patient: Less than 30
--- NOTE | 2023-12-02 23:08 | DS ---
DISCHARGE SUMMARY FINAL DIAGNOSES: 1. Bilateral submassive pulmonary embolism, status post EKOS and pharmacomechanical thrombolysis. 2. Right ventricular strain at 2D echo. 3. Elevated D-dimer. 4. Troponin 0.05, indeterminate, possibly secondary to pulmonary embolus. 5. Hypertension. 6. History of cardiac catheterization. DISCHARGE DISPOSITION: The patient will be discharged in stable condition with guarded prognosis. Total time 35 minutes. HISTORY OF PRESENT ILLNESS: This 73-year-old woman was admitted with acute bilateral pulmonary embolism. The patient was started on heparin and the EKOS was done by Dr. Gimenez, improved significantly. PHYSICAL EXAMINATION: VITAL SIGNS: Stable. CARDIOVASCULAR: S1, S2. RESPIRATIONS: A few scattered rhonchi and crackles. The patient will be discharged in stable condition and guarded prognosis. The patient is on Eliquis as mentioned earlier for a possibly life long treatment. Resume the rest of the medications. Please see the medication reconciliation sheet for list of medications and follow up with Dr. Schwartz, Teodora De Jesus, and Dr. Gimenez as recommended. MMODL / IJN: [id number] /
== END 2023-12-02 13:02 | disposition home or self-care (01) | DRG 163 ==
LOC: EC 08:47 → 3SCARD 11:16 → 2SICU 11-30 12:53
PROVIDERS: ADMIT Internal Medicine; ATTEND Internal Medicine
PROC: B31S1ZZ Fluoroscopy of Right Pulmonary Artery using Low Osmolar Contrast (ICD-10-PCS; 2023-12-01)
PROC: B54BZZA Ultrasonography of Right Lower Extremity Veins, Guidance (ICD-10-PCS; 2023-12-01)
PROC: 02FR3Z0 Fragmentation of Left Pulmonary Artery, Percutaneous Approach, Ultrasonic (ICD-10-PCS; 2023-12-01)
PROC: 02FQ3Z0 Fragmentation of Right Pulmonary Artery, Percutaneous Approach, Ultrasonic (ICD-10-PCS; 2023-12-01)
PROC: B34TZZZ Ultrasonography of Left Pulmonary Artery (ICD-10-PCS; 2023-12-01)
PROC: B34SZZZ Ultrasonography of Right Pulmonary Artery (ICD-10-PCS; 2023-12-01)
PROC: 3E05317 Introduction of Other Thrombolytic into Peripheral Artery, Percutaneous Approach (ICD-10-PCS; 2023-12-01)
PROC: 02CQ3ZZ Extirpation of Matter from Right Pulmonary Artery, Percutaneous Approach (ICD-10-PCS; principal; 2023-12-01 09:15)
PROC: 02CR3ZZ Extirpation of Matter from Left Pulmonary Artery, Percutaneous Approach (ICD-10-PCS; 2023-12-01 09:15)
PROC: B31T1ZZ Fluoroscopy of Left Pulmonary Artery using Low Osmolar Contrast (ICD-10-PCS; 2023-12-01 09:15)
DX: I26.99 Other pulmonary embolism without acute cor pulmonale (principal); J96.01 Acute respiratory failure with hypoxia; I10 Essential (primary) hypertension; I07.1 Rheumatic tricuspid insufficiency; I25.10 Atherosclerotic heart disease of native coronary artery without angina pectoris; E03.9 Hypothyroidism, unspecified; E78.5 Hyperlipidemia, unspecified; M19.90 Unspecified osteoarthritis, unspecified site; Z86.72 Personal history of thrombophlebitis; Z79.899 Other long term (current) drug therapy; Z79.890 Hormone replacement therapy; Z85.51 Personal history of malignant neoplasm of bladder
CPT/HCPCS: 36415; 37211; 71046; 71275; 75746; 76937; 80048; 80053; 81001; 83605; 83735; 83880; 84484; 85025; 85379; 85384; 85610; 85730; 86850; 86900; 86901; 93005; 93306; 93970; 96365; 96366; 99291

== ENCOUNTER → 2024-06-19 | Outpatient (CLI) | payer MEDICARE ==
--- NOTE | 2024-06-20 12:15 | MM ---
Reason for Exam: Screening (asymptomatic). Last mammogram was performed 1 year(s) and 1 month(s) ago. Patient History: Menarche at age 14. First Full-Term at age 26. Postmenopausal. Other cancer. Paternal cousin had breast cancer, age 40. Risk Values: Rachelle 5 year model risk: 2.0%. NCI Lifetime model risk: 5.1%. Prior Study Comparison: 05/15/2021 Bilateral Screening Mammogram, [facility]. 05/18/2022 Bilateral MG 3D screening mammo w/cad, [facility]. 05/31/2023 Bilateral MG 3D screening mammo w/cad, [facility]. Tissue Density: The breasts are heterogeneously dense, which may obscure small masses. Findings: Analyzed By CAD. Right breast: There is no suspicious group of microcalcifications or new suspicious mass. Left breast: There is no suspicious group of microcalcifications or new suspicious mass. Overall Assessment: Negative, BI-RAD 1 Management: Screening Mammogram of both breasts in [address] [facility] will attempt to contact patient to return for supplemental views and ultrasound if indicated. Patient should continue monthly self-breast exams. A clinical breast exam by your physician is recommended on an annual basis. This exam should not preclude additional follow-up of suspicious palpable abnormalities. Note on Rachelle scores and lifetime risk: 1. A Rachelle score greater than 3% is considered moderate risk. If this is the case, consider specialist referral to assess eligibility for a risk reducing agent. 2. If overall lifetime risk for the development of breast cancer is 20% or higher, the patient may qualify for future screening with alternating mammogram and breast MRI. [facility], , 06/20/2024 12:11 PM. Electronically signed and approved by: Gregory Cueva DO
== END | disposition home or self-care (01) ==
LOC: RADMAMWWP 15:04
PROVIDERS: ATTEND Family Medicine
DX: Z12.31 Encounter for screening mammogram for malignant neoplasm of breast (principal); R92.333 Mammographic heterogeneous density, bilateral breasts; Z78.0 Asymptomatic menopausal state; Z80.3 Family history of malignant neoplasm of breast
CPT/HCPCS: 77063; 77067

== ENCOUNTER 2024-08-02 07:01 | Day surgery (SDC) | payer MEDICARE ==
[2024-07-26 14:56] VITALS: BMI 32.1
[2024-08-02] MEDS ORDERED: LIDOCAINE 1% (10MG/ML) FOR IV START INTRADERMA PRN (07:16)
[2024-08-02] MEDS: IV FLUID CONTINUATION 1,000 ML IV ONE (07:30)
[2024-08-02] MEDS: LACTATED RINGERS 1,000 ML IV SCH (07:33)
[2024-08-02 07:41] VITALS: TEMP 97.2
[2024-08-02] MEDS ORDERED: LIDOCAINE 2% (PF) 20 MG/ML 5 ML VIAL ONE (07:58)
[2024-08-02] MEDS ORDERED: PROPOFOL 10 MG/ML 20 ML VIAL IV ONE (07:58)
--- NOTE | 2024-08-02 08:02 | P.GSHP ---
History of Present Illness H&P Date: 08/02/24 CHIEF COMPLAINT: Anemia HISTORY OF PRESENT ILLNESS: The patient is a 74-year-old female who presents with anemia Upper and lower endoscopy were offered for further evaluation and management. PAST MEDICAL HISTORY: Please see list. PAST SURGICAL HISTORY: Please see list. MEDICATIONS: Please see list. ALLERGIES: Please see list. SOCIAL HISTORY: No illicit drug use FAMILY HISTORY: No reports of Crohn disease or ulcerative colitis. REVIEW OF ORGAN SYSTEMS: CONSTITUTIONAL: No reports of fevers or chills. GI: Denies any blood in stools or constipation. PHYSICAL EXAM: VITAL SIGNS: Stable GENERAL: Well-developed pleasant in no acute distress. HEENT: No scleral icterus. Extraocular movements grossly intact. Moist buccal mucosa. NECK: Supple without lymphadenopathy. CHEST: Unlabored respirations. Equal bilateral excursions. CARDIOVASCULAR: Regular rate and rhythm. Distal 2+ pulses. ABDOMEN: Soft, nondistended. MUSCULOSKELETAL: No clubbing, cyanosis, or edema. ASSESSMENT: 1. Anemia PLAN: 1. 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 colonoscopy Past Anesthesia/Blood Transfusion Reactions: No Reported Reaction Additional Past Anesthesia/Blood Transfusion Reaction / Comment(s): no blood transfusion Smoking Status: Never smoker - Past Family History Mother Family Medical History: Cancer Additional Family Medical History / Comment(s): COLON CANCER Brother(s) Family Medical History: Cancer Additional Family Medical History / Comment(s): COLON CANCER Medications and Allergies Home Medications Medication Instructions Recorded Confirmed Type Atorvastatin [Lipitor] 40 mg PO HS 07/17/19 08/02/24 History Fexofenadine HCl [Jasmin Allergy] 180 mg PO HS 07/17/19 08/02/24 History Levothyroxine Sodium [Synthroid] 75 mcg PO DAILY 07/17/19 08/02/24 History Ubidecarenone [Co Q-10] 100 mg PO HS 07/17/19 08/02/24 History amLODIPine BESYLATE [Norvasc] 5 mg PO HS 07/17/19 08/02/24 History atenoloL [Tenormin] 25 mg PO DAILY 07/17/19 08/02/24 History hydroCHLOROthiazide 12.5 mg PO DAILY 07/17/19 08/02/24 History Magnesium 250 mg PO HS 11/29/23 08/02/24 History Acetaminophen Tab [Tylenol] 650 mg PO Q6HR PRN tab 12/02/23 08/02/24 Rx Apixaban [Eliquis Starter Pack 2.5 mg PO BID 07/26/24 08/02/24 History (for VTE)] Calcium Carbonate/Vitamin D3 1 each PO DAILY 07/26/24 08/02/24 History [Caltrate 600-D3 20 Mcg Chew] Allergies Allergy/AdvReac Type Severity Reaction Status Date / Time No Known Allergies Allergy Verified 08/02/24 07:24 Surgical - Exam Vital Signs Temp Pulse Resp BP Pulse Ox 97.2 F L 75 14 148/69 96 08/02/24 07:15 08/02/24 07:15 08/02/24 07:15 08/02/24 07:15 08/02/24 07:15
--- NOTE | 2024-08-02 08:18 | P.PCN ---
Date of Procedure: 08/02/24 Description of Procedure: PREOPERATIVE DIAGNOSIS: Anemia History of blood thinners POSTOPERATIVE DIAGNOSIS: Acute gastritis with bleeding Acute gastric ulcer Gastric polyp Diaphragmatic hiatal hernia Presbyesophagus OPERATION: Esophagogastroduodenoscopy with cold forceps biopsies along antrum, esophagus and duodenum SURGEON: Lizet Beach MD ANESTHESIA: MAC. INDICATIONS: The patient is a 74-year-old female who presents with anemia. Benefits and risks of the procedure were described. Informed consent was obtained. DESCRIPTION: The patient was brought into the endoscopy suite and laid in the left lateral decubitus position. An Olympus gastroscope was passed along the posterior oropharynx down to the distal esophagus where the squamocolumnar junction was encountered at 33 cm from the incisors. The stomach was entered and no bile reflux was found. Additional findings are listed below. Biopsies with cold forceps were obtained of the antrum. The first through third portion of the duodenum was examined. Retroflexion of the scope confirmed Hill grade 3 lower esophageal valve. The squamocolumnar junction demonstrated LA grade B erosive esophagitis. The stomach was desufflated. The patient tolerated the procedure well. FINDINGS: Squamocolumnar junction 33 cm from the incisors. Diaphragmatic hiatus at 40 cm. Hiatal hernia, 7 cm Hill grade 4 lower esophageal valve. LA grade B erosive esophagitis. Biopsies obtained of the duodenum. Chronic gastritis with biopsies obtained. Presence of tertiary contractions consistent with presbyesophagus Minute benign hyperplastic gastric polyps less than 3 mm proximal gastric stomach Acute gastric ulcer distal to angularis incisura, 2 mm Acute gastritis with punctate bleeding RECOMMENDATIONS: Discontinue Eliquis due to acute gastric ulcer and bleeding Omeprazole 40 mg daily x 2 weeks Carafate 1 g 3 times daily for 2 weeks High risk of rebleed due to gastritis and ulcer prior to treatment
[2024-08-02 08:49] VITALS: BP 101/64; PULSE 67; RESP 16
--- NOTE | 2024-08-02 09:25 | P.PCN ---
Date of Procedure: 08/02/24 Description of Procedure: PREOPERATIVE DIAGNOSIS: Anemia POSTOPERATIVE DIAGNOSIS: Tubular adenoma ascending colon Sigmoid diverticulosis OPERATION: Colonoscopy to the ileocecal valve and appendiceal orifice, cecum Colonoscopy with hot snare polypectomy SURGEON: Lizet Beach MD. ANESTHESIA: MAC. INDICATIONS: The patient is an 74-year-old female who presents with anemia. Benefits and risks were described and informed consent was obtained. DESCRIPTION OF PROCEDURE: The patient had undergone Sutab prep. The patient had been brought into the operating room and laid in the left lateral decubitus position. After adequate intravenous sedation, the rectum was examined with 2% lidocaine jelly. External hemorrhoids were encountered. The rectal tone was within normal limits. No lesions were palpated in the rectal vault. An Olympus colonoscope was advanced until the cecum, ileocecal valve and appendiceal orifice were clearly viewed. The prep was excellent. Moderate sigmoid diverticulosis was encountered. Colonic polyps were found and removed. No evidence of focal colitis was found. Retroflexion of the scope demonstrated grade 2 internal hemorrhoids without active bleeding or inflammation. The colon was desufflated. The patient had tolerated the procedure well. Withdrawal time was over 6 minutes. FINDINGS: Aronchick preparation quality scale 1 (1-5) Internal hemorrhoids, grade 2 External hemorrhoids, grade 2. No arteriovenous malformations. Sigmoid diverticulosis, moderate Removal of 1 polyp: - Snare polypectomy ascending colon, 8 mm tubulovillous adenoma No focal colitis. RECOMMENDATIONS: Repeat colonoscopy 3 years, 2027 Plan - Discharge Summary Discharge Rx Participant: No New Discharge Prescriptions: New Sucralfate [Carafate] 1 gm PO BID #30 tablet Omeprazole [PriLOSEC] 40 mg PO DAILY #14 cap Continue Levothyroxine Sodium [Synthroid] 75 mcg PO DAILY atenoloL [Tenormin] 25 mg PO DAILY hydroCHLOROthiazide 12.5 mg PO DAILY Atorvastatin [Lipitor] 40 mg PO HS amLODIPine BESYLATE [Norvasc] 5 mg PO HS Fexofenadine HCl [Jasmin Allergy] 180 mg PO HS Ubidecarenone [Co Q-10] 100 mg PO HS Magnesium 250 mg PO HS Apixaban [Eliquis Starter Pack (for VTE)] 2.5 mg PO BID Acetaminophen Tab [Tylenol] 650 mg PO Q6HR PRN tab PRN Reason: Mild Pain Or Fever > 100.5 Calcium Carbonate/Vitamin D3 [Caltrate 600-D3 20 Mcg Chew] 1 each PO DAILY Discharge Medication List Atorvastatin [Lipitor] 40 mg PO HS 07/17/19 [History] Fexofenadine HCl [Jasmin Allergy] 180 mg PO HS 07/17/19 [History] Levothyroxine Sodium [Synthroid] 75 mcg PO DAILY 07/17/19 [History] Ubidecarenone [Co Q-10] 100 mg PO HS 07/17/19 [History] amLODIPine BESYLATE [Norvasc] 5 mg PO HS 07/17/19 [History] atenoloL [Tenormin] 25 mg PO DAILY 07/17/19 [History] hydroCHLOROthiazide 12.5 mg PO DAILY 07/17/19 [History] Magnesium 250 mg PO HS 11/29/23 [History] Acetaminophen Tab [Tylenol] 650 mg PO Q6HR PRN tab 12/02/23 [Rx] Apixaban [Eliquis Starter Pack (for VTE)] 2.5 mg PO BID 07/26/24 [History] Calcium Carbonate/Vitamin D3 [Caltrate 600-D3 20 Mcg Chew] 1 each PO DAILY 07/26/24 [History] Omeprazole [PriLOSEC] 40 mg PO DAILY #14 cap 08/02/24 [Rx] Sucralfate [Carafate] 1 gm PO BID #30 tablet 08/02/24 [Rx] Follow up Appointment(s)/Referral(s): Lizet Beach MD [STAFF PHYSICIAN] - 08/21/24 10:00 am Patient Instructions/Handouts: *Surgery [facility] - (Anesthesia) Discharge Instructions Outpatient Surgery, Peptic Ulcer (DC), Hiatal Hernia (DC), Colorectal Polyps (GEN), Diverticulosis Diet (GEN) Activity/Diet/Wound Care/Special Instructions: STOP ELIQUS for 2 weeks. Follow-up colon 3 years, 2027 Discharge Disposition: HOME SELF-CARE
== END 2024-08-02 09:31 | disposition home or self-care (01) ==
LOC: ORWHC2ENDO 07:01
PROVIDERS: ATTEND Surgery Plastic and Reconstructive Surgery
DX: D50.9 Iron deficiency anemia, unspecified (principal); Z12.11 Encounter for screening for malignant neoplasm of colon; K29.50 Unspecified chronic gastritis without bleeding; K44.9 Diaphragmatic hernia without obstruction or gangrene; I10 Essential (primary) hypertension; E03.9 Hypothyroidism, unspecified; D12.2 Benign neoplasm of ascending colon
CPT/HCPCS: 88305; 45385; 43239; J2704; J2003